=== PATIENT | male | born 1945 | race Caucasian/White ===

== ENCOUNTER 2020-10-09 12:43 | Outpatient (CLI) | payer MEDICARE, SELFPAY ==
[2020-10-09 13:03] VITALS: BP 138/74; PULSE 58; RESP 18; TEMP 36.3; O2SAT 97
[2020-10-09] MEDS: denosumab 60 mg SDV SUBCUT (13:09)
== END 2020-10-09 12:44 | disposition home or self-care (01) ==
PROVIDERS: PCP Family Medicine; Referring Provider Family Medicine; Visit Provider Family Medicine
DX: M81.0 Age-related osteoporosis without current pathological fracture (principal); Z79.899 Other long term (current) drug therapy
CPT/HCPCS: 96372; J0897

== ENCOUNTER 2021-04-14 10:03 | Outpatient (CLI) | payer MEDICARE, SELFPAY ==
[2021-04-14 10:45] VITALS: BP 135/66; PULSE 59; RESP 18; TEMP 36.4; O2SAT 98
[2021-04-14] MEDS: denosumab 60 mg SDV SUBCUT (10:52)
[2021-04-14 10:58] VITALS: BP 138/71; PULSE 58; RESP 16; TEMP 36.7; O2SAT 97
== END 2021-04-14 10:04 | disposition home or self-care (01) ==
LOC: NEURO 10:10 → ONCMED 10:22
PROVIDERS: PCP Family Medicine; Visit Provider Family Medicine
DX: M81.0 Age-related osteoporosis without current pathological fracture (principal); Z79.899 Other long term (current) drug therapy
CPT/HCPCS: 96372; J0897

== ENCOUNTER 2021-10-13 10:56 | Outpatient (CLI) | payer MEDICARE, SELFPAY ==
[2021-10-13 11:00] VITALS: BP 148/70; PULSE 56; RESP 16; TEMP 36.6; O2SAT 99
[2021-10-13] MEDS: denosumab 60 mg SDV SUBCUT (11:11)
[2021-10-13 11:17] VITALS: BP 150/89; PULSE 54; RESP 16; TEMP 36.5; O2SAT 99
== END 2021-10-13 10:57 | disposition home or self-care (01) ==
PROVIDERS: PCP Family Medicine; Referring Provider Family Medicine; Visit Provider Family Medicine
DX: M81.0 Age-related osteoporosis without current pathological fracture (principal)
CPT/HCPCS: 96372; J0897

== ENCOUNTER 2022-04-19 11:04 | Outpatient (CLI) | payer MEDICARE, OTHER, SELFPAY ==
[2022-04-19 11:25] VITALS: BP 133/77; PULSE 55; RESP 16; TEMP 36.6; O2SAT 98
[2022-04-19] MEDS: denosumab 60 mg SDV SUBCUT (11:35)
[2022-04-19 11:41] VITALS: BP 153/71; PULSE 55; RESP 16; TEMP 36.5; O2SAT 98
== END 2022-04-19 11:05 | disposition home or self-care (01) ==
LOC: ONCMED 11:05
PROVIDERS: PCP Family Medicine; Visit Provider Family Medicine
DX: M81.0 Age-related osteoporosis without current pathological fracture (principal)
CPT/HCPCS: 96372; J0897

== ENCOUNTER 2022-10-27 10:20 | Oncology outpatient (recurring) (ONCR) | payer MEDICARE, OTHER, SELFPAY ==
[2022-10-27] MEDS: denosumab 60 mg SDV SUBCUT (10:58)
== END 2022-11-25 23:59 | disposition home or self-care (01) ==
PROVIDERS: PCP Family Medicine; Visit Provider Family Medicine
DX: M81.0 Age-related osteoporosis without current pathological fracture (principal)
CPT/HCPCS: 96372; J0897

== ENCOUNTER 2023-05-03 09:35 | Oncology outpatient (recurring) (ONCR) | payer MEDICARE, OTHER, SELFPAY ==
[2023-05-03 09:50] VITALS: BP 152/68; PULSE 50; RESP 16; TEMP 36.8; O2SAT 98
[2023-05-03] MEDS: denosumab 60 mg SDV SUBCUT (09:57)
== END 2023-05-26 23:59 | disposition home or self-care (01) ==
PROVIDERS: PCP Family Medicine; Visit Provider Family Medicine
DX: M81.0 Age-related osteoporosis without current pathological fracture (principal)
CPT/HCPCS: 96372; J0897

== ENCOUNTER → 2023-09-26 11:11 | Outpatient (BNVA) | payer MEDICARE, OTHER, SELFPAY | PROVIDERS: PCP Family Medicine; Visit Provider Podiatrist Foot & Ankle Surgery | DX: I73.9 Peripheral vascular disease, unspecified (principal); L60.3 Nail dystrophy | CPT/HCPCS: 11721 ==

== ENCOUNTER → 2024-01-04 10:04 | Outpatient (BNVA) | payer MEDICARE, OTHER, SELFPAY | PROVIDERS: PCP Family Medicine; Visit Provider Podiatrist Foot & Ankle Surgery | DX: I73.9 Peripheral vascular disease, unspecified (principal); L60.3 Nail dystrophy | CPT/HCPCS: 11721 ==

== ENCOUNTER 2024-01-24 14:09 | Oncology outpatient (recurring) (ONCR) | payer MEDICARE, OTHER, SELFPAY ==
[2024-01-24] MEDS: denosumab 60 mg SDV SUBCUT (14:28)
== END 2024-01-26 23:59 | disposition home or self-care (01) ==
PROVIDERS: PCP Family Medicine; Visit Provider Family Medicine
DX: M81.0 Age-related osteoporosis without current pathological fracture (principal); Z79.899 Other long term (current) drug therapy
CPT/HCPCS: 96372; J0897

== ENCOUNTER → 2024-04-10 09:30 | Outpatient (BNVA) | payer MEDICARE, OTHER, SELFPAY | PROVIDERS: PCP Family Medicine; Visit Provider Podiatrist Foot & Ankle Surgery | DX: I73.9 Peripheral vascular disease, unspecified (principal); L60.3 Nail dystrophy | CPT/HCPCS: 11721 ==

== ENCOUNTER → 2024-07-04 11:44 | Outpatient (BNVA) | payer MEDICARE, OTHER, SELFPAY | PROVIDERS: PCP Family Medicine; Visit Provider Podiatrist Foot & Ankle Surgery | DX: I73.9 Peripheral vascular disease, unspecified (principal); L60.3 Nail dystrophy | CPT/HCPCS: 11721 ==

== ENCOUNTER 2024-08-06 14:52 | Oncology outpatient (recurring) (ONCR) | payer MEDICARE, OTHER, SELFPAY ==
[2024-08-06] MEDS: denosumab 60 mg SDV SUBCUT (14:59)
== END 2024-08-25 23:59 | disposition home or self-care (01) ==
PROVIDERS: PCP Family Medicine; Visit Provider Family Medicine
DX: M81.0 Age-related osteoporosis without current pathological fracture (principal); Z79.899 Other long term (current) drug therapy
CPT/HCPCS: 96372; J0897

== ENCOUNTER → 2024-10-02 11:01 | Outpatient (BNVA) | payer MEDICARE, OTHER, SELFPAY | PROVIDERS: PCP Family Medicine; Visit Provider Podiatrist Foot & Ankle Surgery | DX: I73.9 Peripheral vascular disease, unspecified (principal); L60.8 Other nail disorders; L60.3 Nail dystrophy | CPT/HCPCS: 11721 ==

== ENCOUNTER → 2025-01-01 11:13 | Outpatient (BNVA) | payer MEDICARE, OTHER, SELFPAY | PROVIDERS: PCP Family Medicine; Visit Provider Podiatrist Foot & Ankle Surgery | DX: I73.9 Peripheral vascular disease, unspecified (principal); L60.3 Nail dystrophy; L60.8 Other nail disorders | CPT/HCPCS: 11721 ==

== ENCOUNTER 2025-01-07 13:00 | Oncology outpatient (recurring) (ONCR) | payer MEDICARE, OTHER, SELFPAY ==
[2024-12-27] MEDS: iron sucrose 200 MG in sodium chloride 0.9% (100 ml) 100 ML IV (14:21)
[2024-12-27 14:58] VITALS: BP 126/63; PULSE 66; RESP 17; TEMP 36.3; O2SAT 96
[2024-12-31] MEDS: iron sucrose 200 MG in sodium chloride 0.9% (100 ml) 100 ML IV (13:42)
[2024-12-31 14:26] VITALS: BP 134/69; PULSE 65
[2025-01-02] MEDS: iron sucrose 200 MG in sodium chloride 0.9% (100 ml) 100 ML IV (12:30)
[2025-01-02 13:12] VITALS: BP 159/81; PULSE 56; RESP 17; TEMP 35.8; O2SAT 99
[2025-01-04] MEDS: iron sucrose 200 MG in sodium chloride 0.9% (100 ml) 100 ML IV (09:42)
[2025-01-04 10:13] VITALS: BP 115/57; PULSE 60; RESP 17; TEMP 36.6; O2SAT 96
[2025-01-07] MEDS: iron sucrose 200 MG in sodium chloride 0.9% (100 ml) 100 ML IV (14:02)
[2025-01-07 14:41] VITALS: BP 144/74; PULSE 89; TEMP 36.6; O2SAT 96
== END 2025-01-25 23:59 | disposition home or self-care (01) ==
PROVIDERS: PCP Family Medicine; Visit Provider Family Medicine
DX: M81.0 Age-related osteoporosis without current pathological fracture (principal); Z79.899 Other long term (current) drug therapy
CPT/HCPCS: 96365; J1756; J7050

== ENCOUNTER 2025-02-05 10:44 | Oncology outpatient (recurring) (ONCR) | payer MEDICARE, OTHER, SELFPAY ==
[2025-02-05] MEDS: denosumab 60 mg SDV (Infusion Clinic Only) SUBCUT (11:21)
--- NOTE | 2025-02-05 11:24 | PC.NURSE ---
Pt did not have a recent calcium level done here, asked pt when their last labs were done and they said they just had them done a couple days ago at [facility] under Dr. Miller. Spoke with Rosi at their office and she said that pt had a calcium done on 01/28/25 with a level of 9.5.
== END 2025-02-24 23:59 | disposition home or self-care (01) ==
PROVIDERS: PCP Family Medicine; Visit Provider Family Medicine
DX: M81.0 Age-related osteoporosis without current pathological fracture (principal); Z79.899 Other long term (current) drug therapy
CPT/HCPCS: 96372; J0897

== ENCOUNTER 2025-03-19 13:46 | Emergency (ER) | payer MEDICARE, OTHER, SELFPAY ==
[2025-03-19 13:52] VITALS: BP 141/67; PULSE 70; TEMP 36.6; O2SAT 98; BMI 19.1
--- OUTSIDE RECORDS SUMMARY | 2025-03-19 13:57 | XMS_ITS | Continuity of Care Document ---
Author Organization [place] [facility] Dalia Manjarrez, [facility] ([facility]) Address [address] [place] [address] Care Team Providers Care Esters And Emulsifiers Supervisor Name Role Phone ANABELL MILLER Primary Care Provider Belia e Assessment No assessment recorded. Plan of Treatment Reminders Order Date Submit Date Provider Last Modified By Organization Details Last Modified Time Details Appointments OFFICE VISIT 15 2024 01:00P M Anabell Miller MD Not available Not available Not available Lab None recorded . Referral None recorded . Procedures None recorded . Surgeries None recorded . Imaging None recorded . Medication Orders None recorded . Patient TargetsNo targets recorded. Patient InstructionsNo instructions recorded. Reason for Referral None Reported. Results Created Date Observation Date Name Description Value Unit Range Abnormal Flag Note LastModifiedBy Organization Detail LastModifiedTime 12/13/1912/12/2024 CBC WBC 6.7 x10 4.5-10 .5 Not Available [facility] [address] [facility] [address], [place], [address], 12/12/2024 18:00:16 12/13/1912/12/2024 CBC RBC 3.24 x10 4.30-5 .90 low Not Available [facility] [address], [place], [address], 12/12/2024 18:00:16 12/13/1912/12/2024 CBC HGB 7.8 g/dL 13.5-1 8.0 low Not Available [facility] [address] [facility] [address], [place], [address], 12/12/2024 18:00:16 12/13/1912/12/2024 CBC HCT 25.3 % 35.0-6 0.0 low Not Available [facility] [address] [facility], [place], [address], 12/12/2024 18:00:16 12/13/1912/12/2024 CBC MCV 78.1 fL 80.0-9 9.9 low Not Available [facility] [address] [facility] [address], [place], [address], 12/12/2024 18:00:16 12/13/1912/12/2024 CBC MCH 23.9 pg 27.0-3 2.0 low Not Available [facility] [address] [facility] [address], [place], [address], 12/12/2024 18:00:16 12/13/1912/12/2024 CBC MCHC 30.6 g/dL 32.0-3 6.0 low Not Available [facility] [address] [facility] [address], [place], [address], 12/12/2024 18:00:16 12/13/1912/12/2024 CBC RDW 17.6 % 11.5-1 4.5 high Not Available [facility] [address] [facility] [address], [place], [address], 12/12/2024 18:00:16 12/13/1912/12/2024 CBC plt 295.7 x10 150.0- 451.0 Not Available [facility] [address] [facility] [address], [place], [address], 12/12/2024 18:00:16 12/13/1912/12/2024 CBC lymphocytes % 22.5 % 20.0-5 0.0 Not Available [facility] [address] [facility] [address], [place], [address], 12/12/2024 18:00:16 12/13/1912/12/2024 CBC granulcytes % 58.2 % 30.0-7 0.0 Not Available [facility] [address] [facility] [address], [place], [address], 12/12/2024 18:00:16 12/13/1912/12/2024 CBC monocytes % 14.2 % 2.0-16 .0 Not Available [facility] [address] [facility] [address], [place], [address], 12/12/2024 18:00:16 12/13/1912/12/2024 CBC granulcytes# 3.9 x10 Not Alexandra ilable [facility] [address] [facility] [address], [place], [address], 12/12/2024 18:00:16 12/13/1912/12/2024 CBC lymphocytes # 1.5 x10 Not Available [facility] [address] [facility] [address], [place], [address], 12/12/2024 18:00:16 12/13/1912/12/2024 CBC monocytes # 1.0 x10 Not Avai lable [facility] [address] [address], [place], [address], 12/12/2024 18:00:16 12/18/1912/18/2024 IRON, TOTAL iron, total 12 mcg/d L 50-180 low Not Available [facility] [address] [place], [address], 12/18/2024 06:23:26 12/18/19 25 12/18/2024 BUNNY TIN ferritin 14 NG/mL 24-380 low Not Available [facility] [address] [place], [address], 12/18/2024 06:23:26 12/19/19 25 12/18/2024 fecal occul t blood , immun oassa y, stool iFOB positi ve Not Available [facility] [address] [place], [address], 12/18/2024 15:47:59 02/13/20 25 02/04/2025 colon oscop y proce dure (PROC ) No observ ation record ed. [email or web address] Not Available 02/13 11:34:29 Result Notes None recorded. Problems Name Problem SNOMED Code Status Onset Date Resolution Date Notes Provider Name and Address Organization Details Recorded Time Disorder of upper respirato ry system 728159335 Active 2022 UPPER RESPIRATO RY INFECTION ; Recorded 3 11:08AM by Sada Lira, Office Visit; Promoted; acuity set as *; Not Available [facility] 3 03:08:49 Kidney stone 58745286 Active 2022 Kidney stone; 3 11:08AM by Sada Lira, Office Visit; Promoted; acuity set as *; Not Available [facility] 3 03:08:50 Rib pain 967974933 Active 2022 POOJA regalado, [facility] 3 18:26:26 Contusion of left chest wall 54837113738 717750 Active 2022 Anabell Miller MD [address] [place] [address], [phone] , [facility] 3 18:52:38 Easy bruising 699122090 Active 2022 Anabell Miller MD [address] [place] [address], [phone] , [facility] 3 15:58:18 Cerebrova scular disease 71509447 Active 2022 Anabell Miller MD [address] [place] [address], [phone] , [facility] 3 15:58:41 Coronary atheroscl erosis 065214564 Active 2022 Anabell Miller MD [address] [place] [address], [address] , [facility] 3 15:58:54 Osteoporo sis 63712340 Active 2022 Anabell Miller MD [address] [place] [address], [address] , [facility] 3 16:21:10 Vitamin D deficienc y 02177145 Active 2022 Anabell Miller MD [address] [place] [address], [phone] , [facility] 3 16:21:22 Allergic rhinitis 66756429 Active 2023 Anabell Miller MD [address] [place] [address], [address] , [facility] 4 14:22:30 Thickened nails 244952269 Active 2023 Anabell Miller MD [address] [place] [address], [address] , [facility] 4 14:29:27 Poor short-ter m memory 494479253 Active 2023 Anabell Miller MD [address] [place] [address], [address] , [facility] 4 14:22:24 Bilateral bursitis of shoulders 77530679968 184753 Active 2024 Anabell Miller MD [address] [place] [address], [address] , [facility] 5 16:53:27 Primary insomnia 7646855 Active 2024 Anabell Miller MD [address] [place] [address], [address] , [facility] 15:01:00 Hordeolum externum of lower eyelid of right eye 60702383300 9104 Active 2024 Anabell Miller MD [address] [place] [address], [address] , [facility] 15:01:25 Intermitt ent claudicat ion 83131990 Active 2024 Anabell Miller MD [address] [place] [address], [address] , [facility] 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 15:08:53 Occult blood detected in feces 63944587 Active 2024 Anabell Miller MD [address] [place] [address], [address] , [facility] 15:09:47 Iron deficienc y anemia 14782075 Active 2024 Anabell Miller MD [address] [place] [address], [address] , [facility] 15:10:54 Periphera l vascular disease 724924463 Active 2024 Anabell Miller MD [address] [place] [address], [address] , [facility] 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 5 14:40:15 Problem Notes None recorded. Procedures Surgical History Date Name Laterality Status Provider Name and Address Organization Details Recorded Time 5 partial excision of large intestine completed POOJA EASLEY [facility], Dalia 03/19/2025 14:24:00 5 Joint Inj Beta-shoulder, hip, knee completed Anabell Miller MD [address] [place], [address], [facility], Dalia 04/24/2024 16:55:51 Imaging Results None recorded. Procedure Notes None recorded. Medical Equipment None Reported. Allergies No known drug allergies Medications Name Sig Start Date Stop Date Status Note LastModified by Organization Details LastModified Time atorvasta tin 40 mg tablet TAKE 1 TABLET BY MOUTH EVERY DAY active Not Available Not Available No t Available cetirizin e 10 mg tablet Take 1 tablet every day by oral route for 90 days. 2023 active Not Available Not Available Not Avai lable Iron (ferrous sulfate) 325 mg (65 mg iron) tablet Take 1 tablet every day by oral route. active Not Available Not Available No t Available azithromy ania 250 mg tablet TAKE 2 TABLETS BY MOUTH TODAY, THEN TAKE 1 TABLET DAILY FOR 4 DAYS 07/05 completed Not Available Not Available Not Available ondansetr on HCl 4 mg tablet TAKE 1 TABLET BY MOUTH 1 HOUR PRIOR TO CONTRAST NEEDED FOR NAUSEA POST TESTING 09/14 completed Not Available Not Available Not Available clopidogr el 75 mg tablet TAKE 1 TABLET BY MOUTH EVERY DAY active Not Available Not Available No t Available Sinex Long-Acti ng 0.05 % nasal spray as needed active 0; Recorded 05/17/19 11:08AM by Sada Lira, Office Visit; Not Available Not Available Not Available triamcino lone acetonide 0.1 % topical cream PLEASE SEE ATTACHED FOR DETAILED DIRECTIO NS active Not Available Not Available No t Available cephalexi n 500 mg capsule TAKE 1 CAPSULE BY MOUTH THREE TIMES A DAY 09/14 completed Not Available Not Available Not Available pantopraz ole 40 mg tablet,de layed release TAKE 1 TABLET BY MOUTH TWICE A DAY active Not Available Not Available No t Available neomycin- polymyxin -dexameth 3.5 mg/mL-10, 000 unit/mL-0 .1% eye drops INSTILL 1 DROP INTO AFFECTED EYE(S) 4 TIMES DAILY FOR 7 DAYS. active Not Available Not Available No t Available monteluka st 10 mg tablet daily 02/02 completed RM/bn; 9; Recorded 02/18/20 9:44AM by Sada Lira (Authori zed through Anabell Miller MD), Refill Request; Refill Quantity : 30; Tablet; Not Available Not Available Not Available mupirocin 2 % topical ointment APPLY TO AFFECTED AREA TWICE A DAY 09/14 completed Recorded 05/17/19 11:08AM by Sada Lira, Office Visit; Refill Quantity : 0; Not Available Not Available Not Available zolpidem 5 mg tablet TAKE 1 TABLET BY MOUTH EVERY DAY FOR 30 DAYS active Not Available Not Available No t Available metoprolo l succinate ER 25 mg tablet,ex tended release 24 hr TAKE 1/2 TABLET BY MOUTH DAILY 03/19 completed Not Available Not Available Not Available ergocalci ferol (vitamin D2) 1,250 mcg (50,000 unit) capsule TAKE 1 CAPSULE BY MOUTH EVERY MONTH 2024 active Not Available Not Available Not Avai lable fluticaso ne propionat e 50 mcg/actua tion nasal spray,renata pension [place] 2 sprays every day by intranas al route as directed . 2023 active Not Available Not Available Not Avai lable amoxicill in 875 mg-potass ium clavulana te 125 mg tablet TAKE 1 TABLET BY MOUTH TWICE A DAY 07/05 completed Not Available Not Available Not Available esomepraz ole magnesium 20 mg capsule,d elayed release Take 20 mg every 24 hours by oral route. 12/24 completed Not Available Not Available Not Available Adult Low Dose Aspirin 81 mg tablet 02/02 completed Not Available Not Available Not Available galantami ne ER 8 mg 24 hr capsule,e xtended release TAKE 1 CAPSULE BY MOUTH EVERY DAY 08/06 completed Not Available Not Available Not Available galantami ne ER 16 mg 24 hr capsule,e xtended release TAKE 1 CAPSULE BY MOUTH EVERY DAY 2024 active Not Available Not Available Not Avai lable aspirin QD 02/02 completed Recorded 01/23/20 22 4:23PM by Anabell Miller MD, Office Visit; Refill Quantity : 90; Tablet; Not Available Not Available Not Available Vitamin D weekly 02/02 completed 9; Recorded 11/05/19 22 3:17PM by Sada Lira (Authori zed through Anabell Miller MD), Annotati on/Adden dum; Refill Quantity : 13; Capsule; Not Available Not Available Not Available metoprolo l succinate daily 02/02 completed please use this, not the tartrate .; Recorded 06/25/19 21 1:38PM by Anabell Miller MD, Annotati on/Adden dum; Refill Quantity : 45; Tablet; Not Available Not Available Not Available esomepraz ole magnesium daily 02/02 completed 0; Recorded 05/17/19 23 11:08AM by Sada Lira, Office Visit; Not Available Not Available Not Available diclofena c 1 % topical gel Apply 1 g 3 times a day by topical route as needed for 30 days. 12/24 completed Not Available Not Available Not Available Prolia active every 6 months.; 0; Recorded 05/17/19 23 11:08AM by Sada Lira, Office Visit; Not Available Not Available Not Available cyanocoba kimberlyn (vit B-12) 1,000 mcg sublingua l lozenge Place by sublingu al route. active Not Available Not Available No t Available Vitals Date Recorded Body height Body mass index (BMI) Body weight Oxygen saturation Heart rate Body temperature Systolic And Diastolic Provider Name and Address Organization Details Last Updated DateTime 5 172.72 cm 21.8 kg/m2 96317.4 1 g 99 % 77 /min 98.7 [degF] 140/82 mm[Hg] Kelsy Yepez [facility], LCameron 5 09:05:16 Social History Question Answer Notes LastModified by Organizat ion Details LastModified Time Tobacco Smoking Status Former Smoker POOJA EASLEY sabine, [facility].L[facility]CJennifer 02/02/2023 16:07:37 What Was The Date Of Your Most Recent Tobacco Screening? 03/19/2025 Information not available 03/19/2025 How Much Tobacco Do You Smoke? No [email or web address] Information not available 02/07/2024 Sex: Male Functional Status Question Answer Note LastModified by Organization D etails LastModified Time What is your level of alcohol consumption? None Information not available 02/02/2023 Mental Status None recorded. Family History Relationship Description Onset Age of this Age Resolved Age Notes LastModified by Organization Details LastModified Time Father Heart disease [email or web address] Not available 11/20 14:33:47 Medical History No medical history recorded. Immunizations Vaccine Type Date Status Note Provider Nam e and Address Organization Details Recorded Time Influenza, recombinant, quadrivalent, PF 0 completed Not Available [facility] 10/23/2022 02:43:50 Pneumococcal conjugate PCV 13 0 completed Not Available [facility] 10/23/2022 02:43:50 Influenza, high-dose, trivalent, PF 0 completed SADA regalado [facility] 08/05/2023 13:54:44 zoster recombinant 3 completed SADA regalado [facility] 08/05/2023 13:54:43 zoster recombinant 3 completed SADA regalado [facility] 08/05/2023 13:54:43 Influenza, high-dose, quadrivalent, PF 2 completed SADA regalado [facility] 08/05/2023 13:54:43 COVID-19, mRNA, LNP-S, PF, 30 mcg/0.3 mL dose 1 completed SADA regalado [facility] 08/05/2023 13:54:43 COVID-19, mRNA, LNP-S, PF, 30 mcg/0.3 mL dose 1 completed SADA regalado [facility] 08/05/2023 13:54:43 COVID-19, mRNA, LNP-S, PF, 30 mcg/0.3 mL dose 1 completed SADA regalado [facility] 08/05/2023 13:54:44 COVID-19, mRNA, LNP-S, bivalent, PF, 50 mcg/0.5 mL or 25mcg/0.25 mL dose 2 completed SADA regalado [facility] 08/05/2023 13:54:44 Tdap 2 completed SADA regalado [facility] 08/05/2023 13:54:44 Influenza, high-dose, trivalent, PF 4 completed Not Available [facility] 03/19/2025 14:00:28 Influenza, high-dose, trivalent, PF 5 completed Not Available [facility] 03/19/2025 14:00:27 Pneumococcal conjugate PCV21, polysaccharide QWQ647 conjugate, PF 5 completed Not Available [facility] 03/19/2025 14:00:27 Influenza, adjuvanted, quadrivalent, PF 3 [facility] 02/02/2023 16:45:28 Past Encounters Encounter ID Performer Location Encounter Start Date Encounter Closed Date Diagnosis/Indication Diagnosis SNOMED-CT Code Diagnosis ICD10 Code Diagnosis IMO Codes Diagnosis Note [id number] Anabell Miller MD [facility] ([facility]) [address] [place] [phone] 11/20/2024 14:21:57 11/20/2024 15:17:12 Primary insomnia 0158671 F51.01 06792 Hordeolum externum of lower eyelid of right eye 4898323393 90200 H00.876 4300566 Warm moist packs prn Intermitte nt claudication 80812097 I73.9 [id number] followed by vascular surgeon. Appt. pending. [id number] MARKUS YARBROUGH [facility] ([facility]) [address] [place] [address] 12/21/2024 08:49:08 12/21/2024 11:15:35 Scalp laceration 684619707 S01.01XA 02925935 Steri strip x 1 applied. Keep site clean and dry. Wash with mild soap and water. Pat dry . Apply antibiotic ointment as directed. RTC with any new or worsening symptoms. Health Concerns Section Related Observation LastModified by Organization Detai ls LastModified Time None Recorded Concern Status LastModified by Organization Details LastModified Time None Recorded Payers Encounter Date Sequence Insurance Name Policy Number Policy Hobson Covered Member ID Hobson Member ID Guarantor Name 12/21/2024 1 [place]: S Mando Navarro [id number] Mando Navarro 12/21/2024 2 [employer] (MEDICARE SUPPLEMENT) Mando Navarro [id number] Mando Navarro Notes Date Note Type Note Provider Name and Address Organization Details Recorded Time 12/21/2024 text/html ROS as noted in the HPI walk inFell this am 0600, hitting head on foot board of bed-laceration to forehead. Patient has fallen several times. Recently decreased zolpidem to half a tab. Hx of dementia. MARKUS YARBROUGH [address] [place] [address], [phone], [facility] 12/21/2024 11:13:58
--- OUTSIDE RECORDS SUMMARY | 2025-03-19 13:57 | XMS_ITS | Clinical Summary ---
Author Organization [facility] Address [address] [place] [address] Attn: Epic Prelude ADT TAD ARNOLD [id number] Care Team Providers Care Lining Marker Name Role Phone Unavailable Primary Care Provider Unavailabl e Allergies No known active allergies Medications fluticasone propionate (FLONASE) 50 mcg/spray [place], Suspension nasal inhaler Administer 2 Sprays in each nostril daily. 5 Active aspirin (KESHAWN) 325 mg tablet Take 325 mg by mouth daily. 5 Active famotidine (PEPCID ORAL) Take by mouth daily. 5 Active dextromethorpha n-guaiFENesin (MUCINEX DM) 30-600 mg Tablet Sustained Release 12HR Take 1 Tablet by mouth every 12 hours. 5 Active Family History Medical History Relation Name Comments Heart Disease Father Healthy Mother Relation Name Status Comments Father Mother Alive Social History Tobacco Use Types Packs/Day Years Used Date Smoking Tobacco: Every Day Cigarettes Smokeless Tobacco: Never Alcohol Use Standard Drinks/Week Comments No 0 (1 standard drink = 0.6 oz pur e alcohol) Sex and Gender Information Value Date Recorded Sex Assigned at Not on file Legal Sex Male 4:54 AM [employer]ALL [employer] Gender Identity Not on file Sexual Orientation Not on file Last Filed Vital Signs Vital Sign Reading Time Taken Comments Blood Pressure 121/70 12/09/2014 8:51 AM CDT Pulse 77 12/09/2014 8:51 AM CDT Temperature 36.4 C (97.6 F) 12/09/2014 8:51 AM CDT Respiratory Rate - - Oxygen Saturation - - Inhaled Oxygen Concentration - - Weight 65.7 kg (144 lb 12.8 oz) 12/09/2014 8:51 AM CDT Height 172.7 cm (5' 8 ) 12/09/2014 8:51 AM CDT Body Mass Index 22.02 12/09/2014 8:51 AM CDT Plan of Treatment Health Maintenance Due Date Last Done Comments DTAP/TDAP/TD VACCINES (1 - Tdap) 08/03/1964 PNEUMOCOCCAL VACCINE 50+ YEARS (1 of 1 - PCV) 08/02/18 95 ZOSTER VACCINE (1 of 2) 1994 RSV VACCINE (60+ or ) (1 - 1-dose 75+ series) 08/03/2019 INFLUENZA VACCINE (#1) 2024
--- OUTSIDE RECORDS SUMMARY | 2025-03-19 13:57 | XMS_ITS | Continuity of Care Document ---
Author Organization [facility] Dalia Manjarrez, [facility] ([facility]) Address [address] [place] [address] Care Team Providers Care Ancillary Services Manager Therapy Name Role Phone ANABELL MILLER Primary Care Provider Unavailcésar e Assessment No assessment recorded. Plan of Treatment Reminders Order Date Submit Date Provider Last Modified By Organization Details Last Modified Time Details Appointments OFFICE VISIT 15 2024 01:00P M Anabell Miller MD Not available Not available Not available Lab lipid panel, blood - labs ordered by Dr. Ricardo/ will fax results YF 2024 025 [facility], [address], [place], [address], 01/28/2025 11:19:27 BMP, serum or plasma 2024 025 [facility], [address], [address], [place], [address], 01/28/2025 12:01:24 AST/SGOT (asparta te aminotra nsferase ), serum or plasma 2024 025 [facility], [address], [address], [place], [address], 01/28/2025 11:19:25 ALT (alanine aminotra nsferase ), serum or plasma 2024 025 [facility], [address], [address], [place], [address], 01/28/2025 11:19:23 Referral None recorded . Procedures None recorded . Surgeries None recorded . Imaging None recorded . Medication Orders None recorded . Patient TargetsNo targets recorded. Patient InstructionsNo instructions recorded. Reason for Referral None Reported. Results Created Date Observation Date Name Description Value Unit Range Abnormal Flag Note LastModifiedBy Organization Detail LastModifiedTime 01/17/2001/16/2025 calci um, blood calcium 9.0 mg/dL 8.4-10 .2 normal Not Available [facility]) [address] [place], [address], 01/09/2025 15:01:36 01/29/2001/28/2025 ALT (SGPT ) altv (SGPT) 13.0 U/L 13.0-6 9.0 normal Not Available [place] [id number], [address], 01/28/2025 11:19:23 01/29/20 25 01/28/2025 AST (SGOT ) AST (SGOT) 30.0 U/L 0.0-46 .0 Not Available [place] [id number] [address], [address], 01/28/2025 11:19:25 01/29/20 25 01/28/2025 LIPID PROFI LE (MALE ) cholesterol 115.0 mg/dL 0.0-20 0.0 Not Available [facility] [address], [address], 01/28/2025 11:19:27 01/29/20 25 01/28/2025 LIPID PROFI LE (MALE ) trig 75.0 mg/dL 0.0-15 0.0 Not Available [facility] [address], [address], 01/28/2025 11:19:27 01/29/20 25 01/28/2025 LIPID PROFI LE (MALE ) HDL - direct 52.0 mg/dL >40.0 Not Available [facility] [address] [facility] [address], [place], [address], 01/28/2025 11:19:27 01/29/20 25 01/28/2025 LIPID PROFI LE (MALE ) VLDL - direct 15.0 mg/dL Not Available [facility] [address] [facility] [address], [place], [address], 01/28/2025 11:19:27 01/29/20 25 01/28/2025 LIPID PROFI LE (MALE ) LDL - direct 48.0 mg/dL 0.0-13 0.0 Not Available [facility] [address] [facility] [address], [place], [address], 01/28/2025 11:19:27 01/29/20 25 01/28/2025 CBC WBC 6.1 x10 4.5-10 .5 Not Available [facility] [address] [facility] [address], [place], [address], 01/28/2025 11:48:30 01/29/20 25 01/28/2025 CBC RBC 3.61 x10 4.30-5 .90 low Not Available [facility] [address] [facility] [address], [place], [address], 01/28/2025 11:48:30 01/29/2001/28/2025 CBC HGB 10.7 g/dL 13.5-1 8.0 low Not Available [facility] [address] [facility] [address] [facility] [address], [place], [address], 01/28/2025 11:48:30 01/29/20 25 01/28/2025 CBC HCT 35.2 % 35.0-6 0.0 Not Available [facility] [address] [facility] [address], [place], [address], 01/28/2025 11:48:30 01/29/20 25 01/28/2025 CBC MCV 97.4 fL 80.0-9 9.9 Not Available [facility] [address] [facility] [address], [place], [address], 01/28/2025 11:48:30 01/29/20 25 01/28/2025 CBC MCH 29.7 pg 27.0-3 2.0 Not Available [facility] [address] [facility] [address], [place], [address], 01/28/2025 11:48:30 01/29/20 25 01/28/2025 CBC MCHC 30.5 g/dL 32.0-3 6.0 low Not Available [facility] [address] [facility] [address], [place], [address], 01/28/2025 11:48:30 01/29/20 25 01/28/2025 CBC RDW 26.6 % 11.5-1 4.5 Not Available [facility] [address] [facility] [address], [place], [address], 01/28/2025 11:48:30 01/29/20 25 01/28/2025 CBC plt 299.2 x10 150.0- 451.0 Not Available [facility] [address] [facility] [address], [place], [address], 01/28/2025 11:48:30 01/29/20 25 01/28/2025 CBC lymphocytes % 28.4 % 20.0-5 0.0 Not Available [facility] [address] [facility] [address], [place], [address], 01/28/2025 11:48:30 01/29/20 25 01/28/2025 CBC granulcytes % 57.3 % 30.0-7 0.0 Not Available [facility] [address] [facility], [place], [address], 01/28/2025 11:48:30 01/29/20 25 01/28/2025 CBC monocytes % 8.4 % 2.0-16 .0 Not Available [facility] [address] [facility] [address], [place], [address], 01/28/2025 11:48:30 01/29/20 25 01/28/2025 CBC granulcytes# 3.5 x10 Not [facility] [address], [place], [address], 01/28/2025 11:48:30 01/29/20 25 01/28/2025 CBC lymphocytes # 1.7 x10 Not Available [facility] [address] [place] [address], [place], [address], 01/28/2025 11:48:30 01/29/2001/28/2025 CBC monocytes # 0.5 x10 Not Avai lable [facility] [address] [address], [place], [address], 01/28/2025 11:48:30 01/29/20 25 01/28/2025 BMP (MALE ) glucose 102.0 mg/dL 60.0-9 9.0 high Not Available [facility] [address] [address], [place], [address], 01/28/2025 12:01:24 01/29/20 25 01/28/2025 BMP (MALE ) BUN (blood urea nitrogen) 15.0 mg/dL 10.0-2 6.0 Not Available [facility] [address] [facility], [place], [address], 01/28/2025 12:01:24 01/29/20 25 01/28/2025 BMP (MALE ) creatinine (serum) 1.1 mg/dL 0.4-1. 5 Not Available [facility] [address] [facility], [place], [address], 01/28/2025 12:01:24 01/29/20 25 01/28/2025 BMP (MALE ) BUN/creatini ne ratio 13.64 ratio Not Available [facility] [address] [facility] [address], [place], [address], 01/28/2025 12:01:24 01/29/20 25 01/28/2025 BMP (MALE ) calcium 9.5 mg/dL 8.4-10 .5 Not Available [facility] [address] [facility] [address], [place], [address], 01/28/2025 12:01:24 01/29/20 25 01/28/2025 BMP (MALE ) sodium 138.0 mmol/ L 136.0- 145.0 Not Available [facility] [address] [facility] [address], [place], [address], 01/28/2025 12:01:24 01/29/20 25 01/28/2025 BMP (MALE ) potassium 4.1 mmol/ L 3.5-5. 1 Not Available [facility] [address] [facility], [place], [address], 01/28/2025 12:01:24 01/29/20 25 01/28/2025 BMP (MALE ) chloride 104.0 mmol/ L 98.0-1 10.0 normal Not Available [facility] [address] [facility] [address], [place], [address], 01/28/2025 12:01:24 01/29/20 25 01/28/2025 BMP (MALE ) C02 27.0 mmol/ L 22.0-3 1.0 Not Available [facility] [address] [facility], [place], [address], 01/28/2025 12:01:24 02/13/20 25 02/04/2025 colon oscop y proce dure (PROC ) No observ ation record ed. [email or web address] Not Available 02/13 11:34:29 Result Notes None recorded. Problems Name Problem SNOMED Code Status Onset Date Resolution Date Notes Provider Name and Address Organization Details Recorded Time Disorder of upper respirato ry system 660234295 Active 2022 UPPER RESPIRATO RY INFECTION ; Recorded 3 11:08AM by Sada Lira, Office Visit; Promoted; acuity set as *; Not Available [facility] 3 03:08:49 Kidney stone 98549813 Active 2022 Kidney stone; 3 11:08AM by Sada Lira, Office Visit; Promoted; acuity set as *; Not Available [facility] 3 03:08:50 Rib pain 770330549 Active 2022 POOJA regalado, [facility] 3 18:26:26 Contusion of left chest wall 64270448533 861472 Active 2022 Anabell Miller MD [address] [place] [address], [address] , [facility] 3 18:52:38 Easy bruising 171864185 Active 2022 Anabell Miller MD [address] [place] [address], [address] , [facility] 3 15:58:18 Cerebrova scular disease 49825634 Active 2022 Anabell Miller MD [address] [place] [address], [address] , [facility] 3 15:58:41 Coronary atheroscl erosis 792821390 Active 2022 Anabell Miller MD [address] [place] [address], [address] , [facility] 3 15:58:54 Osteoporo sis 82588578 Active 2022 Anabell Miller MD [address] [place] [address], [address] , [facility] 3 16:21:10 Vitamin D deficienc y 08383753 Active 2022 Anabell Miller MD [address] [place] [address], [address] , [facility] 3 16:21:22 Allergic rhinitis 66720589 Active 2023 Anabell Miller MD [address] [place] [address], [address] , [facility] 4 14:22:30 Thickened nails 326770909 Active 2023 Anabell Miller MD [address] [place] [address], [address] , [facility] 4 14:29:27 Poor short-ter m memory 569273145 Active 2023 Anabell Miller MD [address] [place] [address], [address] , [facility] 4 14:22:24 Bilateral bursitis of shoulders 60227584056 464976 Active 2024 Anabell Miller MD [address] [place] [address], [address] , [facility] 5 16:53:27 Primary insomnia 1713235 Active 2024 Anabell Miller MD [address] [place] [address], [address] , [facility] 5 15:01:00 Hordeolum externum of lower eyelid of right eye 05793678565 9104 Active 2024 Anabell Miller MD [address] [place] [address], [address] , [facility] 15:01:25 Intermitt ent anat ion 46774118 Active 2024 Anabell Miller MD [address] [place] [address], [address] , [facility] 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 15:08:53 Occult blood detected in feces 82589276 Active 2024 Anabell Miller MD [address] [place], [place] [address] , [facility] 15:09:47 Iron deficienc y anemia 44716398 Active 2024 Anabell Miller MD [address] [place], [place] [address] , [facility] 15:10:54 Periphera l vascular disease 873103580 Active 2024 Anabell Miller MD [address] [place], [place] [address] , [facility] 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 14:40:15 Problem Notes None recorded. Procedures Surgical History Date Name Laterality Status Provider Name and Address Organization Details Recorded Time 5 partial excision of large intestine completed POOJA EASLEY [facility] 03/19/2025 14:24:00 5 Joint Inj Beta-shoulder, hip, knee completed Anabell Miller MD [address] [place] [address], [address], [facility] 04/24/2024 16:55:51 Imaging Results None recorded. Procedure [...] e 50 mcg/actua tion nasal spray,[employer] [place] 2 sprays every day by intranas al [...] Recorded 11/05/19 22 3:17PM by Sada Lira (i jackie through Anabell Miller MD), Annotati on/Adden dum; Refill Quantity : 13; Capsule; Not Available Not Available Not Available metoprolo l succinate daily 02/02 completed please use this, not the tartrate .; Recorded 06/25/19 21 1:38PM by Anabell Miller MD, Annotati on/Adden dum; Refill Quantity : 45; Tablet; Not Available Not Available Not Available esomepraz ole magnesium daily 02/02 completed 0; Recorded 05/17/19 11:08AM by Sada Lira, Office Visit; Not Available Not Available Not Available diclofena c 1 % topical gel Apply 1 g 3 times a day by topical route as needed for 30 days. 12/24 completed Not Available Not Available Not Available Prolia active every 6 months.; 0; Recorded 05/17/19 11:08AM by Sada Lira, Office Visit; Not Available Not Available Not Available cyanocoba kimberlyn (vit B-12) 1,000 mcg sublingua l lozenge Place by sublingu al route. active Not Available Not Available No t Available Vitals None Recorded Social History Question Answer Notes LastModified by Organizat ion Details LastModified Time Tobacco Smoking Status Former Smoker POOJA EASLEY [facility] 02/02/2023 16:07:37 What Was The Date Of Your Most Recent Tobacco Screening? 03/19/2025 Information not available 03/19/2025 How Much Tobacco Do You Smoke? No [email or web address] Information not available 02/07/2024 Sex: Male Functional [...] recombinant, quadrivalent, PF 0 completed Not Available [facility] 10/23/2022 02:43:50 Pneumococcal conjugate PCV 13 0 completed Not Available [facility] 10/23/2022 02:43:50 Influenza, high-dose, trivalent, PF 0 [facility] 13:54:44 zoster recombinant 3 [facility] 08/05/2023 13:54:43 zoster recombinant 3 completed [facility]IS [facility] 08/05/2023 13:54:43 Influenza, high-dose, quadrivalent, PF 2 completed [facility] 08/05/2023 13:54:43 COVID-19, mRNA, LNP-S, PF, 30 mcg/0.3 mL dose 1 completed [facility] 08/05/2023 13:54:43 COVID-19, mRNA, LNP-S, PF, 30 mcg/0.3 mL dose 1 completed SADA LIRA [facility] 08/05/2023 13:54:43 COVID-19, mRNA, LNP-S, PF, 30 mcg/0.3 mL dose 1 completed SADA LIRA [facility] 08/05/2023 13:54:44 COVID-19, mRNA, LNP-S, bivalent, PF, 50 mcg/0.5 mL or 25mcg/0.25 mL dose 2 completed SADA regalado, [facility] 08/05/2023 13:54:44 Tdap 2 completed SADA regalado, [facility] 08/05/2023 13:54:44 Influenza, high-dose, trivalent, PF 4 completed Not Available [facility] 03/19/2025 14:00:28 Influenza, high-dose, trivalent, PF 5 completed Not Available [facility] 03/19/2025 14:00:27 Pneumococcal conjugate PCV21, polysaccharide [id number] conjugate, PF 5 completed Not Available [facility] 03/19/2025 14:00:27 Influenza, adjuvanted, quadrivalent, PF 3 completed POOJA regalado, [facility] 02/02/2023 16:45:28 Past Encounters Encounter ID Performer Location Encounter Start Date Encounter Closed Date Diagnosis/Indication Diagnosis SNOMED-CT Code Diagnosis ICD10 Code Diagnosis IMO Codes Diagnosis Note [id number] Anabell Miller MD [facility] ([facility]) [address] [place] [phone] 01/28/2025 10:02:30 01/29/2025 09:56:36 Hyperlipidemia 47327025 E78.5 [id number] [facility] [id number] R00 .1 [id number] Health Concerns Section Related Observation LastModified by Organization Detai ls LastModified Time None Recorded Concern Status LastModified by Organization Details LastModified Time None Recorded Payers Encounter Date Sequence Insurance Name Policy Number Policy Hobson Covered Member ID Hobson Member ID Guarantor Name 01/28/2025 1 [place]: [place] Mando Navarro [id number] Mando Navarro 01/28/2025 2 [employer] (MEDICARE SUPPLEMENT) Mando Navarro [id number] Mando Navarro
--- OUTSIDE RECORDS SUMMARY | 2025-03-19 13:57 | XMS_ITS | Continuity of Care Document ---
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 Plan of [...] instructions recorded. Reason for Referral None Reported. Problems Name Problem SNOMED Code Status Onset Date Resolution Date Notes Provider Name and Address Organization Details Recorded Time Disorder of upper respirato ry system 564698432 Active 2022 UPPER RESPIRATO RY INFECTION ; Recorded 3 11:08AM by Sada Lira, Office Visit; Promoted; acuity set as *; Not Available [facility] 3 03:08:49 Kidney stone 47839659 Active 2022 Kidney stone; 3 11:08AM by Sada Lira, Office Visit; Promoted; acuity set as *; Not Available [facility] 3 03:08:50 Rib pain 131452119 Active 2022 [facility]alado, [facility] 3 18:26:26 Contusion of left chest wall 34037678382 338045 Active 2022 Anabell Miller MD [address] [place] [address], [address] , [facility] 3 18:52:38 Easy bruising 231853500 Active 2022 Anabell Miller MD [address] [place] [address], [address] [place] [address] , [facility] 3 15:58:18 Cerebrova scular disease 03122184 Active 2022 Anabell Miller MD [address] [place] [address], [address] [place] [address] , [facility] 3 15:58:41 Coronary atheroscl erosis 557398007 Active 2022 Anabell Miller MD [address] [place] [address], [address] [place] [address] , [facility] 3 15:58:54 Osteoporo sis 77920651 Active 2022 Anabell Miller MD [address] [place] [address], [address] [place] [address] , [facility] 3 16:21:10 Vitamin D deficienc y 55231299 Active 2022 Anabell Miller MD [address] [place] [address], [address] [place] [address] , [facility] 3 16:21:22 Allergic rhinitis 33086457 Active 2023 Anabell Miller MD [address] [place] [address], [address] , [facility] 4 14:22:30 Thickened nails 573651675 Active 2023 Anabell Miller MD [address] [place] [address] , [facility] 4 14:29:27 Poor short-ter m memory 340285944 Active 2023 Anabell Miller MD [address] [place] [address], [address] , [facility] 4 14:22:24 Bilateral bursitis of shoulders 57601853026 868888 Active 2024 Anabell Miller MD [address] [place] [address], [address] , [facility] 16:53:27 Primary insomnia 6468743 Active 2024 Anabell Miller MD [address] [place] [address], [address] , [facility] 15:01:00 Hordeolum externum of lower eyelid of right eye 78113703937 9104 Active 2024 Anabell Miller MD [address] [place] [address], [address] , [facility] 15:01:25 Intermitt ent claudicat ion 71650637 Active 2024 Anabell Miller MD [address] [place] [address], [address] , [facility] 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 15:08:53 Occult blood detected in feces 75990881 Active 2024 Anabell Miller MD [address] [place] [address], [address] , [facility] 15:09:47 Iron deficienc y anemia 52379058 Active 2024 Anabell Miller MD [address] [place], [place] [address] , [facility] 15:10:54 Periphera l vascular disease 013800720 Active 2024 Anabell Miller MD [address] [place] [address], [address] , [facility] 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 5 14:40:15 Problem Notes None recorded. Procedures Surgical History Date Name Laterality Status Provider Name and Address Organization Details Recorded Time 5 partial excision of large intestine completed POOJA EASLEY [facility] 03/19/2025 14:24:00 5 Joint Inj Beta-shoulder, hip, knee completed Anabell Miller MD [address] [place] [address], [address], [facility] 04/24/2024 16:55:51 Imaging Results None recorded. Procedure [...] e 50 mcg/actua tion nasal spray,renata pension [place] 2 sprays every day by intranas al [...] Not Available Not Available Not Available cyanocoba kmiberlyn (vit B-12) 1,000 mcg sublingua l lozenge Place by sublingu al route. active Not Available Not Available No t Available Vitals Date Recorded Body height Body mass index (BMI) Body weight Heart rate Systolic And Diastolic Provider Name and Address Organization Details Last Updated DateTime 03/19/2025 172.72 cm 19.2 kg/m2 55615.64 g 68 /min 118/60 mm[Hg] POOJA TRACEE [facility] 14:15:12 Social History Question Answer Notes LastModified by Organizat ion Details LastModified Time Tobacco Smoking Status Former Smoker POOJA TRACEE regalado [facility] 02/02/2023 16:07:37 What Was The Date Of Your Most Recent Tobacco Screening? 03/19/2025 Information not available 03/19/2025 How Much Tobacco Do You Smoke? No [email or web address] Information not available 02/07/2024 Sex: Male Functional [...] recombinant, quadrivalent, PF 0 completed Not Available [facility] 10/23/2022 02:43:50 Pneumococcal conjugate PCV 13 0 completed Not Available [facility] 10/23/2022 02:43:50 Influenza, high-dose, trivalent, PF 0 completed SADA regalado [facility] 08/05/2023 13:54:44 zoster recombinant 3 completed SADA regalado [facility] 08/05/2023 13:54:43 zoster recombinant 3 completed SADA regalado [facility] 08/05/2023 13:54:43 Influenza, high-dose, quadrivalent, PF 2 completed SADA regalado [facility] 08/05/2023 13:54:43 COVID-19, mRNA, LNP-S, PF, 30 mcg/0.3 mL dose 1 completed SADA regalado [facility] 08/05/2023 13:54:43 COVID-19, mRNA, LNP-S, PF, 30 mcg/0.3 mL dose 1 completed SADA regalado [facility] 08/05/2023 13:54:43 COVID-19, mRNA, LNP-S, PF, 30 mcg/0.3 mL dose 1 completed SADA regalado [facility] 08/05/2023 13:54:44 COVID-19, mRNA, LNP-S, bivalent, PF, 50 mcg/0.5 mL or 25mcg/0.25 mL dose 2 completed SADA regalado [facility] 08/05/2023 13:54:44 Tdap 2 completed SADA regalado [facility] 08/05/2023 13:54:44 Influenza, high-dose, trivalent, PF 4 completed Not Available [facility] 03/19/2025 14:00:28 Influenza, high-dose, trivalent, PF 5 completed Not Available [facility] 03/19/2025 14:00:27 Pneumococcal conjugate PCV21, polysaccharide IDH099 conjugate, PF 5 completed Not Available [facility] 03/19/2025 14:00:27 Influenza, adjuvanted, quadrivalent, PF 3 completed POOJA regalado, [facility]ifer 02/02/2023 16:45:28 Past Encounters Encounter ID Performer Location Encounter Start Date Encounter Closed Date Diagnosis/Indication Diagnosis SNOMED-CT Code Diagnosis ICD10 Code Diagnosis IMO Codes Diagnosis Note [id number] Anabell Miller MD [facility] ([facility]) [address] [place] [address] 03/19/2025 13:58:11 03/19/2025 14:44:18 Peripheral vascular disease 681942763 I73.9 13198 I am worried that he has re occlusion as he has been off Eliquis for a bit for his colon surgey. I discussed with ER physician who will see him in ER to evaluate for vascular lesions. 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 He is now followed by oncology. Health Concerns Section Related Observation LastModified by Organization Detai ls LastModified Time None Recorded Concern Status LastModified by Organization Details LastModified Time None Recorded Payers Encounter Date Sequence Insurance Name Policy Number Policy Hobson Covered Member ID Hobson Member ID Guarantor Name 03/19/2025 1 [place] S Mando Navarro [id number] Mando Navarro 03/19/2025 2 [employer] [place] (MEDICARE SUPPLEMENT) Mando Navarro [id number] Mando Navarro
--- OUTSIDE RECORDS SUMMARY | 2025-03-19 13:57 | XMS_ITS | Clinical Summary ---
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 Active fluticasone (FLONASE) 50 mcg/spray [place], Suspension Administer 2 Sprays in each nostril daily. Active FAMOTIDINE (PEPCID ORAL) Take by mouth daily. Active aspirin (KESHAWN) 325 mg tablet Take 325 mg by mouth daily. 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 Gender Identity Not on file Sexual Orientation Not on file Last Filed Vital Signs Vital Sign Reading Time Taken Comments Blood Pressure 121/70 12/09/2014 8:51 AM CDT Pulse 77 12/09/2014 8:51 AM CDT Temperature 36.4 C (97.6 F) 12/09/2014 8:51 AM CDT Respiratory Rate - - Oxygen Saturation 98% 12/09/2014 8:51 AM CDT Inhaled Oxygen Concentration - - Weight 65.7 kg (144 lb 12.8 oz) 12/09/2014 8:51 AM CDT Height 172.7 cm (5' 8 ) 12/09/2014 8:51 AM CDT Body Mass Index 22.02 12/09/2014 8:51 AM CDT Plan of Treatment Health Maintenance Due Date Last Done Comments DTAP/TDAP/TD VACCINES (1 - Tdap) 08/03/1963 PNEUMOCOCCAL VACCINE 50+ YEARS (1 of 2 - PCV) 08/02/18 63 ZOSTER VACCINE (1 of 2) 1994 RSV VACCINE (60+ or ) (1 - 1-dose 75+ series) 08/03/2019 INFLUENZA VACCINE (#1) 2024 Insurance MEDICARE PART A AND B
--- OUTSIDE RECORDS SUMMARY | 2025-03-19 13:57 | XMS_ITS | Continuity of Care Document ---
Author Organization [place] [facility] Dalia Manjarrez, [facility] ([facility]) Address [address] [place] [address] Care Team Providers Care Bottle Feeder Name Role Phone ANABELL MILLER Primary Care Provider Unavailabl e Assessment No assessment recorded. Plan of Treatment Reminders Order Date Submit Date Provider Last Modified By Organization Details Last Modified Time Details Appointments OFFICE VISIT 15 2024 01:00P M Anabell Miller MD Not available Not available Not available Lab None recorded. Referral gastroent erologist referral - PANENDOSC OPY 2024 025 [email or web address] Terrance Melendez MD, [address] [facility], [place], [address], 01/01/2025 15:34:18 Procedures None recorded. Surgeries None recorded. Imaging None recorded. Medication Orders None recorded. Patient TargetsNo targets recorded. Patient InstructionsNo instructions recorded. 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 [address], [place], [address], 12/12/2024 18:00:16 12/13/19 25 12/12/2024 CBC RBC 3.24 x10 4.30-5 .90 low Not Available [facility] [address], [place], [address], 12/12/2024 18:00:16 12/13/1912/12/2024 CBC HGB 7.8 g/dL 13.5-1 8.0 low Not Available [facility] [address] [facility], [place], [address], 12/12/2024 18:00:16 12/13/1912/12/2024 CBC HCT 25.3 % 35.0-6 0.0 low Not Available [facility] [address] [facility], [place], [address], 12/12/2024 18:00:16 12/13/1912/12/2024 CBC MCV 78.1 fL 80.0-9 9.9 low Not Available [facility] [address] [facility], [place], [address], 12/12/2024 18:00:16 12/13/1912/12/2024 CBC MCH 23.9 pg 27.0-3 2.0 low Not Available [facility] [address] [facility], [place], [address], 12/12/2024 18:00:16 12/13/1912/12/2024 CBC MCHC 30.6 g/dL 32.0-3 6.0 low Not Available [facility] [address] [facility], [place], [address], 12/12/2024 18:00:16 12/13/1912/12/2024 CBC RDW 17.6 % 11.5-1 4.5 high Not Available [facility] [address] [facility], [place], [address], 12/12/2024 18:00:16 12/13/1912/12/2024 CBC plt 295.7 x10 150.0- 451.0 Not Available [facility] [address] [facility], [place], [address], 12/12/2024 18:00:16 12/13/1912/12/2024 CBC lymphocytes % 22.5 % 20.0-5 0.0 Not Available [facility] [address] [facility] [address], [place], [address], 12/12/2024 18:00:16 12/13/1912/12/2024 CBC granulcytes % 58.2 % 30.0-7 0.0 Not Available [facility] [address] [facility], [place], [address], 12/12/2024 18:00:16 12/13/1912/12/2024 CBC monocytes % 14.2 % 2.0-16 .0 Not Available [facility] [address] [facility] [address], [place], [address], 12/12/2024 18:00:16 12/13/1912/12/2024 CBC granulcytes# 3.9 x10 Not Alexandra ilable [facility] [address] [facility] [address], [place], [address], 12/12/2024 18:00:16 12/13/1912/12/2024 CBC lymphocytes # 1.5 x10 Not Available [facility] [address] [facility] [address], [place], [address], 12/12/2024 18:00:16 12/13/1912/12/2024 CBC monocytes # 1.0 x10 Not Avai lable [facility] [address] [facility], [place], [address], 12/12/2024 18:00:16 12/18/1912/18/2024 IRON, TOTAL iron, total 12 mcg/d L 50-180 low Not Available [facility] [address] [place], [address], 12/18/2024 06:23:26 12/18/1912/18/2024 BUNNY TIN ferritin 14 NG/mL 24-380 low Not Available [facility] [address] [place], [address], 12/18/2024 06:23:26 12/19/1912/18/2024 fecal occul t blood , immun oassa y, stool iFOB positi ve Not Available [facility] ([facility]) [address] [place] [address], [address], 12/18/2024 15:47:59 02/13/20 25 02/04/2025 colon oscop y proce dure (PROC ) No observ ation record ed. [email or web address] Not Available 02/13 11:34:29 Result Notes None recorded. Problems Name Problem SNOMED Code Status Onset Date Resolution Date Notes Provider Name and Address Organization Details Recorded Time Disorder of upper respirato ry system 984995301 Active 2022 UPPER RESPIRATO RY INFECTION ; Recorded 3 11:08AM by Sada Lira, Office Visit; Promoted; acuity set as *; Not Available [facility] 3 03:08:49 Kidney stone 69827997 Active 2022 Kidney stone; 3 11:08AM by Sada Lira, Office Visit; Promoted; acuity set as *; Not Available [facility] 3 03:08:50 Rib pain 804062725 Active 2022 POOJA regalado, [facility]ennifer 3 18:26:26 Contusion of left chest wall 48221735329 037233 Active 2022 Anabell Miller MD [address] [place] [address], [address] , [facility], JoshuaLChloe 3 18:52:38 Easy bruising 815147681 Active 2022 Anabell Miller MD [address] [place] [address], [address] , [facility] 3 15:58:18 Cerebrova scular disease 81727963 Active 2022 Anabell Miller MD [address] [place] [address], [address] , [facility] 3 15:58:41 Coronary atheroscl erosis 715052179 Active 2022 Anabell Miller MD [address] [place], [place] [address] , [facility] 3 15:58:54 Osteoporo sis 64256660 Active 2022 Anabell Miller MD [address] [place] [address], [address] , [facility] 3 16:21:10 Vitamin D deficienc y 12479815 Active 2022 Anabell Miller MD [address] [place] [address], [address] , [facility] 3 16:21:22 Allergic rhinitis 84863531 Active 2023 Anabell Miller MD [address] [place], [place] [address] , [facility] 4 14:22:30 Thickened nails 159725676 Active 2023 Anabell Miller MD [address] [place], [place] [address] , [facility] 4 14:29:27 Poor short-ter m memory 276734983 Active 2023 Anabell Miller MD [address] [place], [place] [address] , [facility] 4 14:22:24 Bilateral bursitis of shoulders 50439294259 619200 Active 2024 Anabell Miller MD [address] [place] [address], [address] , [facility] 16:53:27 Primary insomnia 1453220 Active 2024 Anabell Miller MD [address] [place] [address], [address] , [facility] 15:01:00 Hordeolum externum of lower eyelid of right eye 07419348632 9104 Active 2024 Anabell Miller MD [address] [place] [address], [address] , [facility] 15:01:25 Intermitt ent claudicat ion 72076833 Active 2024 Anabell Miller MD [address] [place] [address], [address] , [facility] 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 15:08:53 Occult blood detected in feces 11717327 Active 2024 Anabell Miller MD [address] [place] [address], [address] , [facility] 15:09:47 Iron deficienc y anemia 50941756 Active 2024 Anabell Miller MD [address] [place], [place] [address] , [facility] 15:10:54 Periphera l vascular disease 830212591 Active 2024 Anabell Miller MD [address] [place] [address], [address] , [facility] 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 5 14:40:15 Problem Notes None recorded. Procedures Surgical History Date Name Laterality Status Provider Name and Address Organization Details Recorded Time 5 partial excision of large intestine completed POOJA EASLEY [facility] 03/19/2025 14:24:00 5 Joint Inj Beta-shoulder, hip, knee completed Anabell Miller MD [address] [place] [address], [address], [facility] 04/24/2024 16:55:51 Imaging Results None recorded. [...] e 50 mcg/actua tion nasal spray,renata pension [place] 2 sprays every day by intranas al [...] and Address Organization Details Last Updated DateTime 12/24/2024 172.72 cm 21.7 kg/m2 46399.71 g 72 /min 139/60 mm[Hg] POOJA EASLEY [facility] L.L.CJennifer 14:24:56 Social History Question Answer Notes LastModified by Organizat ion Details LastModified Time Tobacco Smoking Status Former Smoker POOJA TRACEE regalado [facility] 02/02/2023 16:07:37 What Was The Date Of Your Most Recent Tobacco Screening? 03/19/2025 Information not available 03/19/2025 How Much Tobacco Do You Smoke? No [email or web address] Information not available 02/07/2024 Sex: Male Functional [...] recombinant, quadrivalent, PF 0 completed Not Available [facility] 10/23/2022 02:43:50 Pneumococcal conjugate PCV 13 0 completed Not Available [facility] 10/23/2022 02:43:50 Influenza, high-dose, trivalent, PF 0 completed SADA regalado [facility] 08/05/2023 13:54:44 zoster recombinant 3 completed SADA regalado [facility] 08/05/2023 13:54:43 zoster recombinant 3 completed SADA regalado [facility] L.L.CJennifer 08/05/2023 13:54:43 Influenza, high-dose, quadrivalent, PF 2 completed SADA regalado, [facility] 08/05/2023 13:54:43 COVID-19, mRNA, LNP-S, PF, 30 mcg/0.3 mL dose 1 completed SADA regalado [facility] 08/05/2023 13:54:43 COVID-19, mRNA, LNP-S, PF, 30 mcg/0.3 mL dose 1 completed SADA regalado, [facility] 08/05/2023 13:54:43 COVID-19, mRNA, LNP-S, PF, 30 mcg/0.3 mL dose 1 completed SADA regalado [facility] 08/05/2023 13:54:44 COVID-19, mRNA, LNP-S, bivalent, PF, 50 mcg/0.5 mL or 25mcg/0.25 mL dose 2 completed SADA regalado [facility] 08/05/2023 13:54:44 [facility]dap 2 [facility] 08/05/2023 13:54:44 Influenza, high-dose, trivalent, PF 4 completed Not Available [facility] 03/19/2025 14:00:28 Influenza, high-dose, trivalent, PF 5 completed Not Available [facility] 03/19/2025 14:00:27 Pneumococcal conjugate PCV21, polysaccharide MIC359 conjugate, PF 5 completed Not Available [facility] 03/19/2025 14:00:27 Influenza, adjuvanted, quadrivalent, PF 3 completed [facility] 02/02/2023 16:45:28 Past Encounters Encounter ID Performer Location Encounter Start Date Encounter Closed Date Diagnosis/Indication Diagnosis SNOMED-CT Code Diagnosis ICD10 Code Diagnosis IMO Codes Diagnosis Note [id number] Anabell Miller MD [facility] ([facility]) [address] [place] [address] 12/24/2024 13:53:37 12/24/2024 15:18:26 Cerebrovascular disease 40141636 I67.9 stable. Iron defic iency anemia due to blood loss 393054643 D50.0 929898 Occult blo od detected in feces 60971005 R19.5 567406 Iron defic iency anemia 08164039 D50.9 17156811 will work towards iron infusion ISIDRO. Peripheral vascular disease 944861561 I73.9 20664 S/P Angioplast y and stent. [id number] MARKUS YARBROUGH [facility] ([facility]) [address] [place] [address] 12/21/2024 08:49:08 12/21/2024 11:15:35 Scalp laceration 120389490 S01.01XA 64653070 Steri strip x 1 applied. Keep site [...] Member ID Hobson Member ID Guarantor Name 12/24/2024 1 MEDICARE [place]: [facility] Mando Navarro [id number] Mando Navarro 12/24/2024 2 [employer] [place] (MEDICARE SUPPLEMENT) Mando Navarro [id number] Mando Navarro
--- OUTSIDE RECORDS SUMMARY | 2025-03-19 13:57 | XMS_ITS | Data Portability ---
Author Organization [facility] [place] [facility], [facility] Address [address] [facility] [address] [place] [address] Care Team Providers Care Public Address Announcer Name Role Phone ANABELL MILLER Primary Care Provider Unavailabl e Assessment No assessment recorded. Plan of Treatment Reminders Order Date Submit Date Provider Last Modified By Organization Details Last Modified Time Details Appointments OFFICE VISIT 15 2024 01:00P Sandi Miller MD Not available Not available Not available Lab lipid panel, blood - labs ordered by Dr. Ricardo/ will fax results YF 2024 025 [facility], [address], [place], [address], 01/28/2025 11:19:27 BMP, serum or plasma 2024 025 [facility], [address], [address], [place], [address], 01/28/2025 12:01:24 AST/SGOT (asparta te aminotra nsferase ), serum or plasma 2024 025 [facility], [address], [place], [address], 01/28/2025 11:19:25 ALT (alanine aminotra nsferase ), serum or plasma 2024 025 [facility], [address], [place], [address], 01/28/2025 11:19:[address] referral - PANENDOS COPY 2024 025 [email or web address] Terrance Melendez MD, [address], [address], [place], [address], 01/01/2025 15:34:18 Procedures None recorded . Surgeries None recorded . Imaging None recorded . Medication Orders zolpidem 5 mg tablet [address] [id number], [address], [place], [address], 12/24/2024 14:27:32 Maxitrol 3.5 mg/mL-10 ,000 unit/mL- 0.1% eye drops,jain spension 2024 025 [id number], [address], [place], [address], 11/20/2024 15:07:55 Patient TargetsNo targets recorded. Patient InstructionsNo instructions recorded. 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 Referral for Occult blood detected in feces PANENDOSCOPY Referring Physician: Anabell Miller, Family Medicine, Encounter Date: 12/24/2024 Results Created Date Observation Date Name Description Value Unit Range Abnormal Flag Note LastModifiedBy Organization Detail LastModifiedTime 12/13/1912/12/2024 CBC WBC 6.7 x10 4.5-10 .5 Not Available [facility] [address], [place], [address], 12/12/2024 18:00:16 12/13/1912/12/2024 CBC RBC 3.24 x10 4.30-5 .90 low Not Available [facility] [place] [facility] [facility] [address], [place], [address], 12/12/2024 18:00:16 12/13/19 25 12/12/2024 CBC HGB 7.8 g/dL 13.5-1 8.0 low Not Available [facility] [place] [facility] [address] [facility], [place], [address], 12/12/2024 18:00:16 12/13/1912/12/2024 CBC HCT 25.3 % 35.0-6 0.0 low Not Available [facility] [place] [facility] [facility] [address] [facility], [place], [address], 12/12/2024 18:00:16 12/13/1912/12/2024 CBC MCV 78.1 fL 80.0-9 9.9 low Not Available [facility] [place] [place] [facility] [address] [facility], [place], [address], 12/12/2024 18:00:16 12/13/1912/12/2024 CBC MCH 23.9 pg 27.0-3 2.0 low Not Available [facility] [place] [facility] [place] [facility] [address] [facility], [place], [address], 12/12/2024 18:00:16 12/13/1912/12/2024 CBC MCHC 30.6 g/dL 32.0-3 6.0 low Not Available [facility] [place] [facility] [facility] [address] [facility], [place], [address], 12/12/2024 18:00:16 12/13/1912/12/2024 CBC RDW 17.6 % 11.5-1 4.5 high Not Available [facility] [place] [facility] [facility] [address] [facility], [place], [address], 12/12/2024 18:00:16 12/13/1912/12/2024 CBC plt 295.7 x10 150.0- 451.0 Not Available [facility] [place] [facility] [facility] [address] [facility] [address] [facility], [place], [address], 12/12/2024 18:00:16 12/13/1912/12/2024 CBC lymphocytes % 22.5 % 20.0-5 0.0 Not Available [facility] [facility] [facility] [address] [facility], [place], [address], 12/12/2024 18:00:16 12/13/1912/12/2024 CBC granulcytes % 58.2 % 30.0-7 0.0 Not Available [facility] [address] [facility], [place], [address], 12/12/2024 18:00:16 12/13/1912/12/2024 CBC monocytes % 14.2 % 2.0-16 .0 Not Available [facility] [address] [facility], [place], [address], 12/12/2024 18:00:16 12/13/1912/12/2024 CBC granulcytes# 3.9 x10 Not Alexandra ilable [facility] [address] [facility] 1, [place], [address], 12/12/2024 18:00:16 12/13/1912/12/2024 CBC lymphocytes # 1.5 x10 Not Available [facility] [address] [facility] 1, [place], [address], 12/12/2024 18:00:16 12/13/1912/12/2024 CBC monocytes # 1.0 x10 Not Avai lable [facility] [address] [facility], [place], [address], 12/12/2024 18:00:16 12/18/1912/18/2024 IRON, TOTAL iron, total 12 mcg/d L 50-180 low Not Available [employer] [facility] [address] , [place], [address], 12/18/2024 06:23:26 12/18/19 25 12/18/2024 BUNNY TIN ferritin 14 NG/mL 24-380 low Not Available [facility] [address] [place], [address], 12/18/2024 06:23:26 12/19/19 25 12/18/2024 fecal occul t blood , immun oassa y, stool iFOB positi ve Not Available [facility] [address] [place] [address], [address], 12/18/2024 15:47:59 01/17/20 25 01/16/2025 calci um, blood calcium 9.0 mg/dL 8.4-10 .2 normal Not Available [facility] [address] [place] [address], [phone], 01/09/2025 15:01:36 01/29/20 25 01/28/2025 ALT (SGPT ) altv (SGPT) 13.0 U/L 13.0-6 9.0 normal Not Available [facility] [address], [address], 01/28/2025 11:19:23 01/29/20 25 01/28/2025 AST (SGOT ) AST (SGOT) 30.0 U/L 0.0-46 .0 Not Available [facility] [address], [address], 01/28/2025 11:19:25 01/29/20 25 01/28/2025 LIPID PROFI LE (MALE ) cholesterol 115.0 mg/dL 0.0-20 0.0 Not Available [facility] [address], [address], 01/28/2025 11:19:27 01/29/20 25 01/28/2025 LIPID PROFI LE (MALE ) trig 75.0 mg/dL 0.0-15 0.0 Not Available [place] [address] [facility], [place], [address], 01/28/2025 11:19:27 01/29/20 25 01/28/2025 LIPID PROFI LE (MALE ) HDL - direct 52.0 mg/dL >40.0 Not Available [facility] [address] [facility], [place], [address], 01/28/2025 11:19:27 01/29/20 25 01/28/2025 LIPID PROFI LE (MALE ) VLDL - direct 15.0 mg/dL Not Available [facility] [address] [facility], [place], [address], 01/28/2025 11:19:27 01/29/20 25 01/28/2025 LIPID PROFI LE (MALE ) LDL - direct 48.0 mg/dL 0.0-13 0.0 Not Available [place] [facility] [facility] [address] [facility], [place], [address], 01/28/2025 11:19:27 01/29/20 25 01/28/2025 CBC WBC 6.1 x10 4.5-10 .5 Not Available [facility] [address] [facility], [place], [address], 01/28/2025 11:48:30 01/29/2001/28/2025 CBC RBC 3.61 x10 4.30-5 .90 low Not Available [place] [facility] [place] [facility] [address] [facility], [place], [address], 01/28/2025 11:48:30 01/29/20 25 01/28/2025 CBC HGB 10.7 g/dL 13.5-1 8.0 low Not Available [facility] [address] [facility], [place], [address], 01/28/2025 11:48:30 01/29/20 25 01/28/2025 CBC HCT 35.2 % 35.0-6 0.0 Not Available [facility] [place] [facility] [address] [facility], [place], [address], 01/28/2025 11:48:30 01/29/20 25 01/28/2025 CBC MCV 97.4 fL 80.0-9 9.9 Not Available [facility] [place] [facility] [place] [facility] [address] [facility], [place], [address], 01/28/2025 11:48:30 01/29/20 25 01/28/2025 CBC MCH 29.7 pg 27.0-3 2.0 Not Available [facility] [place] [facility] [place] [facility] [address] [facility], [place], [address], 01/28/2025 11:48:30 01/29/20 25 01/28/2025 CBC MCHC 30.5 g/dL 32.0-3 6.0 low Not Available [facility] [place] [facility] [place] [facility] [address] [facility], [place], [address], 01/28/2025 11:48:30 01/29/20 25 01/28/2025 CBC RDW 26.6 % 11.5-1 4.5 Not Available [facility] [place] [facility] [address], [place], [address], 01/28/2025 11:48:30 01/29/20 25 01/28/2025 CBC plt 299.2 x10 150.0- 451.0 Not Available [facility] [place] [facility] [place] [facility] [address] [facility], [place], [address], 01/28/2025 11:48:30 01/29/20 25 01/28/2025 CBC lymphocytes % 28.4 % 20.0-5 0.0 Not Available [facility] [place] [facility] [facility] [address] [facility], [place], [address], 01/28/2025 11:48:30 01/29/20 25 01/28/2025 CBC granulcytes % 57.3 % 30.0-7 0.0 Not Available [facility] [address] [facility], [place], [address], 01/28/2025 11:48:30 01/29/20 25 01/28/2025 CBC monocytes % 8.4 % 2.0-16 .0 Not Available [facility] [address] [facility], [place], [address], 01/28/2025 11:48:30 01/29/20 25 01/28/2025 CBC granulcytes# 3.5 x10 Not Alexandra ilable [facility] [address] [address], [place], [address], 01/28/2025 11:48:30 01/29/20 25 01/28/2025 CBC lymphocytes # 1.7 x10 Not Available [facility] [address] [facility], [place], [address], 01/28/2025 11:48:30 01/29/20 25 01/28/2025 CBC monocytes # 0.5 x10 Not Avai lable [facility] [address] [facility], [place], [address], 01/28/2025 11:48:30 01/29/20 25 01/28/2025 BMP (MALE ) glucose 102.0 mg/dL 60.0-9 9.0 high Not Available [facility] [address] [facility], [place], [address], 01/28/2025 12:01:24 01/29/20 25 01/28/2025 BMP (MALE ) BUN (blood urea nitrogen) 15.0 mg/dL 10.0-2 6.0 Not Available [facility] [place] [facility] [address] [facility] 1, [place], [address], 01/28/2025 12:01:24 01/29/20 25 01/28/2025 BMP (MALE ) creatinine (serum) 1.1 mg/dL 0.4-1. 5 Not Available [facility] [address] [facility], [place], [address], 01/28/2025 12:01:24 01/29/20 25 01/28/2025 BMP (MALE ) BUN/creatini ne ratio 13.64 ratio Not Available [place] [facility] [address] [facility], [place], [address], 01/28/2025 12:01:24 01/29/20 25 01/28/2025 BMP (MALE ) calcium 9.5 mg/dL 8.4-10 .5 Not Available [facility] [place] [facility] [address] [facility], [place], [address], 01/28/2025 12:01:24 01/29/20 25 01/28/2025 BMP (MALE ) sodium 138.0 mmol/ L 136.0- 145.0 Not Available [place] [facility] [address] [facility], [place], [address], 01/28/2025 12:01:24 01/29/20 25 01/28/2025 BMP (MALE ) potassium 4.1 mmol/ L 3.5-5. 1 Not Available [place] [facility] [address] [facility], [place], [address], 01/28/2025 12:01:24 01/29/20 25 01/28/2025 BMP (MALE ) chloride 104.0 mmol/ L 98.0-1 10.0 normal Not Available [facility] [address] [facility] [address] [facility], [place], [address], 01/28/2025 12:01:24 01/29/20 25 01/28/2025 BMP (MALE ) C02 27.0 mmol/ L 22.0-3 1.0 Not Available [facility] [address] [facility], [place], [address], 01/28/2025 12:01:24 02/13/20 25 02/04/2025 colon oscop y proce dure (PROC ) No observ ation record ed. [email or web address] Not Available 02/13 11:34:29 Result Notes None recorded. Problems Name Problem SNOMED Code Status Onset Date Resolution Date Notes Provider Name and Address Organization Details Recorded Time Disorder of upper respirato ry system 737697127 Active 2022 UPPER RESPIRATO RY INFECTION ; Recorded 3 11:08AM by Sada Lira, Office Visit; Promoted; acuity set as *; Not Available [facility] 3 03:08:49 Kidney stone 11048584 Active 2022 Kidney stone; 3 11:08AM by Sada Lira, Office Visit; Promoted; acuity set as *; Not Available [facility] 3 03:08:50 Rib pain 587119190 Active 2022 POOJA regalado, [facility] 3 18:26:26 Contusion of left chest wall 81318609280 009056 Active 2022 Anabell Miller MD [address] [place] [address], [address] , [facility] 3 18:52:38 Easy bruising 655701160 Active 2022 Anabell Miller MD [address] [place] [address], [address] , [facility] 3 15:58:18 Cerebrova scular disease 49743796 Active 2022 Anabell Miller MD [address] [place] [address], [address] , [facility] 3 15:58:41 Coronary atheroscl erosis 895622354 Active 2022 Anabell Miller MD [address] [place] [address], [address] , [facility] 3 15:58:54 Osteoporo sis 22557810 Active 2022 Anabell Miller MD [address] [place] [address], [phone] , [facility] 3 16:21:10 Vitamin D deficienc y 73119399 Active 2022 Anabell Miller MD [address] [place] [address], [address] , [facility] 3 16:21:22 Allergic rhinitis 62144817 Active 2023 Anabell Miller MD [address] [place] [address], [address] , [facility] 4 14:22:30 Thickened nails 581183275 Active 2023 Anabell Miller MD [address] [place] [address], [address] , [facility] 4 14:29:27 Poor short-ter m memory 368007729 Active 2023 Anabell Miller MD [address] [place] [address], [address] , [facility] 4 14:22:24 Bilateral bursitis of shoulders 06543974093 654972 Active 2024 Anabell Miller MD [address] [place] [address], [address] , [facility] 5 16:53:27 Primary insomnia 0070164 Active 2024 Anabell Miller MD [address] [place] [address], [address] , [facility] 15:01:00 Hordeolum externum of lower eyelid of right eye 38870617758 9104 Active 2024 Anabell Miller MD [address] [place] [address], [address] , [facility] 15:01:25 Intermitt ent claudicat ion 60785228 Active 2024 Anabell Miller MD [address] [place] [address], [address] , [facility] 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 15:08:53 Occult blood detected in feces 77765408 Active 2024 Anabell Miller MD [address] [place] [address], [address] , [facility] 15:09:47 Iron deficienc y anemia 22657886 Active 2024 Anabell Miller MD [address] [place] [address], [address] , [facility] 15:10:54 Periphera l vascular disease 186007231 Active 2024 Anabell Miller MD [address] [place] [address], [address] , [facility] 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 5 14:40:15 Problem Notes None recorded. Procedures Surgical History Date Name Laterality Status Provider Name and Address Organization Details Recorded Time 5 partial excision of large intestine completed POOJA EASLEY [facility] 03/19/2025 14:24:00 5 Joint Inj Beta-shoulder, hip, knee completed Anabell Miller MD [address] [place], [address], [facility] L.LJenniferC. 04/24/2024 16:55:51 Imaging Results None recorded. Procedure [...] e 50 mcg/actua tion nasal spray,[employer] [place] 2 sprays every day by intranas al [...] and Address Organization Details Last Updated DateTime 11/20/2024 172.72 cm 21.3 kg/m2 49235.93 g 72 /min 140/70 mm[Hg] POOJA EASLEY [facility]CJennifer 14:29:35 Date Recorded Body height Body mass index (BMI) Body weight Oxygen saturation Heart rate Body temperature Systolic And Diastolic Provider Name and Address Organization Details Last Updated DateTime 172.72 cm 21.8 kg/m2 27204.4 1 g 99 % 77 /min 98.7 [degF] 140/82 mm[Hg] Kelsy Yepez [facility] 5 09:05:16 Date Recorded Body height Body mass index (BMI) Body weight Heart rate Systolic And Diastolic Provider Name and Address Organization Details Last Updated DateTime 12/24/2024 172.72 cm 21.7 kg/m2 92137.71 g 72 /min 139/60 mm[Hg] POOJA EASLEY [facility] 14:24:56 Date Recorded Body height Body mass index (BMI) Body weight Heart rate Systolic And Diastolic Provider Name and Address Organization Details Last Updated DateTime 03/19/2025 172.72 cm 19.2 kg/m2 45034.64 g 68 /min 118/60 mm[Hg] POOJA EASLEY [facility] 5 14:15:12 Social History Question Answer Notes LastModified by Organizat ion Details LastModified Time Tobacco Smoking Status Former Smoker POOJA EASLEY [facility] 02/02/2023 16:07:37 What Was The Date Of Your Most Recent Tobacco Screening? 03/19/2025 Information not available 03/19/2025 How Much Tobacco Do You Smoke? No [email or web address] Information not available 02/07/2024 Sex: Male Functional [...] recombinant, quadrivalent, PF 0 completed Not Available [facility] 10/23/2022 02:43:50 Pneumococcal conjugate PCV 13 0 completed Not Available [facility] 10/23/2022 02:43:50 Influenza, high-dose, trivalent, PF 0 completed SADA regalado, [facility] 08/05/2023 13:54:44 zoster recombinant 3 completed SADA regalado, [facility] 08/05/2023 13:54:43 zoster recombinant 3 completed SADA regalado, [facility] 08/05/2023 13:54:43 Influenza, high-dose, quadrivalent, PF 2 [facility] 08/05/2023 13:54:43 COVID-19, mRNA, LNP-S, PF, 30 mcg/0.3 mL dose 1 completed [facility] 08/05/2023 13:54:43 COVID-19, mRNA, LNP-S, PF, 30 mcg/0.3 mL dose 1 completed [facility] 08/05/2023 13:54:43 COVID-19, mRNA, LNP-S, PF, 30 mcg/0.3 mL dose 1 completed SADA JAQUAN [facility] 08/05/2023 13:54:44 COVID-19, mRNA, LNP-S, bivalent, PF, 50 mcg/0.5 mL or 25mcg/0.25 mL dose 2 completed SADA LIRA [facility] 08/05/2023 13:54:44 Tdap 2 completed SADA LIRA [facility] 08/05/2023 13:54:44 Influenza, high-dose, trivalent, PF 4 completed Not Available [facility] 03/19/2025 14:00:28 Influenza, high-dose, trivalent, PF 5 completed Not Available [facility] 03/19/2025 14:00:27 Pneumococcal conjugate PCV21, polysaccharide NGI157 conjugate, PF 5 completed Not Available [facility] 03/19/2025 14:00:27 Influenza, adjuvanted, quadrivalent, PF 3 completed POOJA regalado [facility] 02/02/2023 16:45:28 Past Encounters Encounter ID Performer Location Encounter Start Date Encounter Closed Date Diagnosis/Indication Diagnosis SNOMED-CT Code Diagnosis ICD10 Code Diagnosis IMO Codes Diagnosis Note [id number] Anabell Miller MD [facility] [address] [place] [phone] 07/05/2022 18:13:54 07/12/2022 07:49:32 Contusion of left chest wall 7756383468 1214403 S20.212A [id number] Anabell Miller MD [facility] [address] [place] [id number] 09/15/2022 15:36:12 09/15/2022 17:41:17 Easy bruising 659341574 R58 Coronary atherosclerosis 716369347 I25.10 Cerebrovas cular disease 13617706 I67.9 [id number] Anabell Miller MD [facility] [address] [place] [id number] 02/02/2023 15:56:39 02/02/2023 17:14:19 Cerebrovascular disease 54422421 I67.9 Coronary atherosclerosis 517899947 I25.10 Osteoporosis 32823922 M8 1.0 Vitamin D deficiency 347 84253 E55.9 this is resolved and is actually a little high. he will go back to 1 tablet every month instead of every week. [id number] Anabell Miller MD [facility] [address] [place] [id number] 08/05/2023 13:50:01 08/05/2023 14:53:13 Coronary atherosclerosis 494844486 I25.10 stable. Allergic rhinitis 467894 04 J30.9 Osteoporosis 68045150 M8 1.0 Thickened nails 35925050 5 Q84.5 [id number] Anabell Miller MD [facility] [address] [place] [id number] 5 02/07/2024 13:55:17 02/08/2024 10:33:34 Coronary atherosclerosis 313289858 I25.10 stable. Cerebrovas cular disease 18218538 I67.9 Osteoporosis 31316275 M8 1.0 Poor short -term memory 128410333 R41.3 [id number] Anabell Miller MD [facility] [address] [place] [id number] 04/24/2024 16:10:26 04/26/2024 15:53:24 Poor short-term memory 946538853 R41.3 Bilateral bursitis of shoulders 3544056189 7079946 M75.51 M75.52 [id number] Anabell Miller MD [facility] [address] [place] [id number] 5 08/06/2024 11:23:59 08/06/2024 12:28:06 Cerebrovascular disease 39928725 I67.9 stable. Poor short -term memory 338162050 R41.3 [id number] Anabell Miller MD [facility] [address] [place] [id number] 5 11/20/2024 14:21:57 11/20/2024 15:17:12 Primary insomnia 6706617 F51.01 00387 Hordeolum externum of lower eyelid of right eye 4937203075 16385 H00.184 3875668 Warm moist packs prn Intermitte nt claudication 92887139 I73.9 [id number] followed by vascular surgeon. Appt. pending. [id number] Anabell Miller MD [facility] [address] [place] [id number] 5 12/24/2024 13:53:37 12/24/2024 15:18:26 Cerebrovascular disease 27297609 I67.9 stable. Iron defic iency anemia due to blood loss 364968190 D50.0 970866 Occult blo od detected in feces 07323887 R19.5 527015 Iron defic iency anemia 09375818 D50.9 48770878 will work towards iron infusion ISIDRO. Peripheral vascular disease 149255163 I73.9 12151 S/P Angioplast y and stent. [id number] MARKUS YARBROUGH [facility] [address] [place] [id number] 5 12/21/2024 08:49:08 12/21/2024 11:15:35 Scalp laceration 406313570 S01.01XA 05368315 Steri strip x 1 applied. Keep site clean and dry. Wash with mild soap and water. Pat dry . Apply antibiotic ointment as directed. RTC with any new or worsening symptoms. [id number] Anabell Miller MD [facility] ([facility]) [address] [place] [phone] 01/28/2025 10:02:30 01/29/2025 09:56:36 Hyperlipidemia [id number] E78.5 [id number] Bradycardia [id number] R00 .1 [id number] Anabell Miller MD [facility] ([facility]) [address] [place] [address] [phone] 03/19/2025 13:58:11 03/19/2025 14:44:18 Peripheral vascular disease [id number] I73.9 [id number] I am worried that he has re occlusion as he has been off Eliquis for a bit for his colon surgey. I discussed with ER physician who will see him in ER to evaluate for vascular lesions. 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 He is now followed by oncology. Health Concerns Section Related Observation LastModified by Organization Detai ls LastModified Time None Recorded Concern Status LastModified by Organization Details LastModified Time None Recorded Advance Directives Directive None Recorded Payers Insurance Date Sequence Insurance Name Policy Number Policy Hobson Covered Member ID Hobson Member ID Guarantor Name 03/19/2025 [place] - [place] - [place] A - [facility] (MEDICARE) Mando Navarro [id number] Mando Matthias Navarro 03/19/2025 2 [employer] (MEDICARE SUPPLEMENT) Mando Ramon [id number] Mando Matthias Navarro 03/19/2025 1 MEDICARE B-[place]: [employer] Mando Navarro [id number] Mando Navarro Notes Date Note Type Note Provider Name and Address Organization Details Recorded Time 12/21/2024 text/html ROS as noted in the HPI walk inFell this am 0600, hitting head on foot board of bed-laceration to forehead. Patient has fallen several times. Recently decreased zolpidem to half a tab. Hx of dementia. MARGIE CHAN, BUSINESS SYSTEMS TECHNICIAN [address] [place] [address], [phone], [facility] 12/21/2024 11:13:58
--- NOTE | 2025-03-19 14:11 | USCV_ITS ---
Mando Navarro Age: 79 Gender: M : 1945 Exam Date: 03/19/2025 14:49 Ordering Phys: Eren Olmos DO Technologist: Exam [place] [facility] [place]: rt leg pain and swelling PROCEDURES: Venous duplex imaging was performed in only the right lower extremity. The following venous structures were evaluated: common femoral vein, profunda vein, proximal portion of the greater saphenous vein, superficial femoral vein, and the popliteal vein. In addition, the posterior tibial and peroneal trunk were evaluated. FINDINGS: Normal 2-D Doppler and augmentation and compressibility throughout the lower extremity venous structures. Additional imaging through the proximal calf veins also reveals no thrombus. Limited evaluation of the greater saphenous vein is patent with no thrombus. CONCLUSIONS No DVT right lower extremity. Dr. Dasia Key DO (Electronically Signed) Final Date: 19 March 2025 15:54 S
--- NOTE | 2025-03-19 14:11 | USR_ITS ---
PROCEDURE INFORMATION: Exam: US Duplex Right Lower Extremity Arteries Or Arterial Bypass Grafts Exam date and time: 03/19/2025 2:57 PM Age: 79 years old Clinical indication: Pain; Leg, upper; Right; Prior surgery; Surgery date: <1 month; Surgery type: Stents in RT leg; Additional info: Pain cyanosis TECHNIQUE: Imaging protocol: Right Real-time duplex scan of the arteries or arterial bypass grafts of the right lower extremity with 2-D chi scale, color Doppler flow and spectral waveform analysis. Images documented and saved. COMPARISON: No relevant prior studies available. FINDINGS: Right common femoral artery: Grossly patent right common femoral artery with velocity 19 cm/sec. Right profunda femoris artery: Right profunda femoral artery evaluation not attempted on this exam. Right superficial femoral artery: Plaque noted throughout grossly patent right superficial femoral artery. Proximal and mid superficial femoral artery velocities 27 cm/sec and distal superficial femoral artery 30 cm/sec. Right popliteal artery: Greater amount of echogenic plaque right popliteal artery which appears grossly patent with velocity 25 cm/sec. Right calf/foot arteries: Grossly patent right posterior tibial artery with velocity 13 cm/sec. Monophasic waveform right anterior tibial artery. Grossly patent right dorsalis pedis artery on color Doppler exam. Right peroneal artery evaluation not attempted on this exam. Right iliac artery: Grossly patent right common iliac artery with proximal velocity 17 cm/sec, mid iliac artery velocity 83 cm/sec and distal right external iliac velocity 19 cm/sec. Other findings: Atherosclerotic changes with mixed echogenic plaque demonstrated of right lower extremity arterial supply. No obvious acute thrombus noted on ultrasound exam right lower extremity arterial supply. Monophasic waveforms demonstrated throughout the right lower extremity. Soft tissues: No hematoma or abnormal fluid collection noted. Other findings: No aneurysm noted. Right arm blood pressure 130/60. Right SAMANTHA 0.46. US/[place] [id number] IMPRESSION: 1. Grossly patent right lower extremity arterial supply with diffuse atherosclerotic changes. 2. No obvious acute thrombus noted right lower extremity arterial supply on this ultrasound exam. 3. Right SAMANTHA 0.46 compatible with moderate peripheral artery disease.
--- NOTE | 2025-03-19 14:17 | W.ED.EXTPRO ---
HPI - Extremity Problem General: Chief complaint: Extremity Problem,Nontraumatic Stated complaint: sent by Dr Miller regarding right leg Time Seen by Provider: 03/19/25 14:07 History of Present Illness: 79-year-old male presents to the emergency room from his primary care doctor's office. Patient has a known history of coronary disease last month he had some vascular work done in the right lower extremity had some stenting and some thrombectomy. For the last several weeks has had increasing pain weakness in the right lower extremity. He seen his doctor today the leg felt cool to the touch with decreased capillary refill and he was directed here for further evaluation. Patient is on Plavix he is not on any direct anticoagulants. No recent chest pain or shortness of breath Associated symptoms: Deny chest pain, fever(s) or rash Related Data Home Medications ?Medication ?Instructions ?Recorded ?Confirmed atorvastatin 40 mg tablet 40 mg PO QPM 10/29/20 03/26/25 clopidogrel 75 mg tablet 75 mg PO DAILY 10/29/20 03/26/25 ergocalciferol (vitamin D2) 1,250 1,250 mcg PO .MONTHLY 10/29/20 03/26/25 mcg (50,000 unit) capsule metoprolol succinate 25 mg 12.5 mg PO DAILY 10/29/20 03/26/25 tablet,extended release 24 hr montelukast 10 mg tablet 10 mg PO DAILY 10/29/20 03/26/25 galantamine 16 mg 24 hr 16 mg PO DAILY 03/19/25 03/26/25 capsule,extended release pantoprazole 40 mg tablet,delayed 40 mg PO BID 03/19/25 03/26/25 release Allergies Allergy/AdvReac Type Severity Reaction Status Date / Time No Known Allergies Allergy Verified 03/26/25 16:21 Review of Systems Const: Denies: fever(s) or chills Card: Denies: chest pain Resp: Denies: dyspnea GI: Denies: abdominal pain : Denies: dysuria, urinary frequency or urinary urgency Musc: Denies: neck pain or back pain Skin/Breast: Denies: rash PFSH ED PFSH: Social History Smoking and tobacco/nicotine status: former use of tobacco/nicotine Physical Exam Const: GENERAL APPEARANCE: cooperative ORIENTATION/CONSCIOUSNESS: Yes awake, Yes oriented to person, Yes oriented to place and Yes oriented to time HENMT: COMMON NORMALS: normocephalic, atraumatic and hearing grossly normal bilaterally HEAD & SCALP: normocephalic and atraumatic Resp: COMMON NORMALS: normal respiratory effort, No retractions, No use of accessory muscles and clear to auscultation bilaterally AUSCULTATION: clear to auscultation bilaterally Cardio: COMMON NORMALS: regular rate, regular rhythm and No murmurs present (Cardio) RATE: regular rate RHYTHM: regular rhythm GI: COMMON NORMALS: Soft to palpation and No hepatosplenomegaly present AUSCULTATION: Yes normoactive bowel sounds PALPATION: Yes Soft to palpation, No Tenderness to palpation present (GI), No Guarding due to palpation present (GI) and Yes No hepatosplenomegaly present Extremity: OTHER: Right leg mildly cool to the touch weak dorsalis pedis pulse I cannot palpate a posterior tibialis pulse. Slow capillary refill no cyanosis. Neuro: SENSORIUM/ORIENTATION: Yes oriented to person, Yes oriented to place and Yes oriented to time Skin: COMMON NORMALS: no rashes or lesions noted GENERAL SKIN EXAM: no rashes or lesions noted Course Vital Signs: Vital signs: Vital Signs Temperature 97.9 F 03/19/25 13:52 Pulse Rate 76 03/19/25 17:07 Respiratory Rate 18 03/19/25 17:06 Blood Pressure 136/75 03/19/25 17:07 Pulse Oximetry 98 03/19/25 17:07 Oxygen Delivery Me thod Room Air 03/19/25 17:06 MDM - Extremity (Nontraumatic) Medical Decision Making Medical decision making Social determinants: Age I reviewed the patient's medical record. I reviewed the patient's current home meds. Alternate historians: None Differential diagnosis: DVT, superficial thrombophlebitis musculoskeletal leg pain osteoarthritic pain, ischemic limb Lab Review:Hemoglobin 10.9 white count is normal remainder his CBC and indices are normal CPK is 26. Imaging: Venous duplex lower extremity negative for acute DVT Assessment of risk Level of risk: Low moderate Hospitalization considerations: No indication for hospitalization Reexamination: Unchanged Assessment and plan: Reviewed findings with the patient. He is chronically anemic hemoglobin is 10.9 remainder of his laboratory test normal CPK was normal. He does have increased risk because of his history of colon cancer. His venous duplex is normal suspect this is more musculoskeletal in nature given exam findings. Arterial flow is present with an SAMANTHA of 0.46. We could palpate weak pulses there was no thrombus noted on the ultrasound. Will discharge patient home have him follow-up with his primary care doctor return if he has worsening or changes symptoms Medical Records I reviewed the patient's medical records. Lab Data I reviewed the patient's lab results. 03/19/25 14:25 Radiology Impressions Duplex Scan Lower Extremity Artery 03/19/25 14:11 IMPRESSION: 1. Grossly patent right lower extremity arterial supply with diffuse atherosclerotic changes. 2. No obvious acute thrombus noted right lower extremity arterial supply on this ultrasound exam. 3. Right SAMANTHA 0.46 compatible with moderate peripheral artery disease. Laboratory Results WBC 5.30 10^3/uL (3.29-11.43) 03/19/25 14: RBC 3.58 10^6/uL (3.85-5.65) L 03/19/25 14: Hgb 10.90 g/dL (11.27-16.99) L 03/19/25 14: Hct 34.4 % (37-53) L 03/19/25 14: MCV 96.1 fl (82-101) 03/19/25 14: MCH 30.4 pg (27-33) 03/19/25 14: MCHC 31.7 g/dL (30-55) 03/19/25 14: RDW 14.4 % (12.1-15.1) 03/19/25 14: Plt Count 364 10^3/cmm (157-399) 03/19/25 14: MPV 9.4 fL (7.4-10.4) 03/19/25 14: Neut % (Auto) 55.4 % 03/19/25 14: Lymph % (Auto) 27.7 % 03/19/25 14: Prairie % (Auto) 10.6 % 03/19/25 14: Eos % (Auto) 5.7 % 03/19/25 14: Baso % (Auto) 0.4 % 03/19/25 14: Neut # (Auto) 2.94 10^3/uL (1.8-7.7) 03/19/25 14:25 Lymph # (Auto) 1.5 10^3/uL (0.8-4.8) 03/19/25 14:25 Prairie # (Auto) 0.6 10^3/uL (0.2-0.9) 03/19/25 14:25 Eos # (Auto) 0.3 10^3/uL (0.0-0.8) 03/19/25 14:25 Baso # (Auto) 0.0 10^3/uL (0.0-0.1) 03/19/25 14:25 Nucleated RBC % (auto) 0 % 03/19/25 14:25 Nucleated RBCs # 0.0 /100WBC 03/19/25 14:25 Creatine Kinase 26 U/L (39-308) L 03/19/25 14:25 All radiology interpretation(s) finalized by discharge Discharge Plan Discharge Patient Disposition: Home Clinical Impression: PAD (peripheral artery disease), Leg pain, right Condition: Stable Prescriptions: No Action atorvastatin 40 mg tablet 40 mg PO QPM metoprolol succinate 25 mg tablet extended release 24 hr 12.5 mg PO DAILY ergocalciferol (vitamin D2) 1,250 mcg (50,000 unit) capsule 1,250 mcg PO .MONTHLY Rx Instructions: 1st day of the month montelukast 10 mg tablet 10 mg PO DAILY clopidogrel 75 mg tablet 75 mg PO DAILY pantoprazole 40 mg tablet,delayed release (DR/EC) 40 mg PO BID galantamine 16 mg capsule,ext rel. pellets 24 hr 16 mg PO DAILY Discharge Orders: Discharge ED (Routine); Ordered 03/19/25 Ordered By: Eren Olmos Referrals: Monty Miller MD [Primary Care Provider, Family Practice] Patient Instructions: Opioid Safety, Pain Management, Patient Portal & Tyree Instructions Activity Restrictions/Additional Instructions: [facility]. It is very important that you follow up as instructed or that you return to the Emergency Department should you have concerns or if your condition changes or worsens in any way. Emergency department visits are focused on emergent conditions, in some cases you may require further evaluation on an outpatient basis. You were seen in the emergency room with concerns of blood flow in your right leg. Arterial Doppler shows some diminished flow however it is not occluded. This consistent with your history of coronary artery disease. There was no blood clot on the venous side of the circulatory system in your right leg. Continue your current medications particularly your antiplatelet medications clopidogrel and aspirin. 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 This information is given to all patients were discharged from the ER regardless of their discharge diagnosis or the medicines they usually take or are prescribed.) Print Language: Colombian Coding Level of Care Code ED Software Quality Manager for Shellie Serna
[2025-03-19 14:36] LABS: Hematocrit 34.4 % (37-53); Hemoglobin 10.90 g/dL (11.27-16.99); Mean Corpuscular HGB Conc 31.7 g/dL (30-55); Mean Corpuscular Hemoglobin 30.4 pg (27-33); Mean Corpuscular Volume 96.1 fl (82-101); Nucleated Red Blood Cells % 0 %; Platelet Count 364 10^3/cmm (157-399); Red Blood Count 3.58 10^6/uL (3.85-5.65); White Blood Count 5.30 10^3/uL (3.29-11.43)
[2025-03-19 17:06] VITALS: BP 136/75; PULSE 76; RESP 18; O2SAT 98
[2025-03-19 17:07] VITALS: BP 136/75; PULSE 76; O2SAT 98
== END 2025-03-19 17:11 | disposition home or self-care (01) ==
PROVIDERS: Emergency Provider Family Medicine; PCP Family Medicine
DX: I73.9 Peripheral vascular disease, unspecified (principal); M79.604 Pain in right leg; Z87.891 Personal history of nicotine dependence
CPT/HCPCS: 36415; 82550; 85025; 93926; 93971; 99284

== ENCOUNTER 2025-03-26 15:40 | Oncology outpatient (recurring) (ONCR) | payer MEDICARE, OTHER, SELFPAY ==
[2025-03-26 16:52] LABS: Hematocrit 37.5 % (37-53); Hemoglobin 11.70 g/dL (11.27-16.99); Mean Corpuscular HGB Conc 31.2 g/dL (30-55); Mean Corpuscular Hemoglobin 30.1 pg (27-33); Mean Corpuscular Volume 96.4 fl (82-101); Nucleated Red Blood Cells % 0 %; Platelet Count 291 10^3/cmm (157-399); Red Blood Count 3.89 10^6/uL (3.85-5.65); White Blood Count 6.12 10^3/uL (3.29-11.43)
[2025-03-26 17:21] LABS: Alanine Aminotransferase 10 U/L (0-41); Albumin Level 3.9 g/dL (3.5-5.2); Alkaline Phosphatase 78 U/L (40-130); Anion Gap 15.8 (5-19); Aspartate Amino Transferase 13 U/L (0-40); Blood Urea Nitrogen 11 mg/dL (8-23); Calcium 8.9 mg/dL (8.5-10.5); Carbon Dioxide 25 mmol/L (22-29); Chloride 101 mmol/L (98-107); Globulin 3.2 g/dL (1.3-4.6); Glucose 86 mg/dL (65-115); Osmolality Calculated 285 mOsm/kg (285-295); Potassium 3.8 mmol/L (3.5-5.1); Sodium 138 mmol/L (136-145); Total Protein 7.1 g/dL (6.6-8.7)
[2025-03-26 19:48] LABS: Carcinoembryonic Antigen 1.4 ng/mL (0.0-4.7)
== END 2025-03-27 23:59 | disposition home or self-care (01) ==
PROVIDERS: Internal Medicine Medical Oncology; PCP Family Medicine; Visit Provider Family Medicine
DX: Z53.9 Procedure and treatment not carried out, unspecified reason; C18.9 Malignant neoplasm of colon, unspecified; Z87.891 Personal history of nicotine dependence; R53.1 Weakness; I99.8 Other disorder of circulatory system
CPT/HCPCS: 80053; 82378; 85025; 99205